=== PATIENT | female | born 1990 | race African-American/Black ===

== ENCOUNTER 2016-10-25 17:21 | Observation (INO) | payer SELFPAY ==
[~2016-10-25] VITALS: Ht 160 cm; Wt 170.0 kg
[~2016-10-25 17:21] MED LIST: CIPR250T2 PO; ZOFR4TAB3 PO
[2016-10-25 17:24] VITALS: BP 127/60; PULSE 95; RESP 14; O2SAT 100
--- NOTE | 2016-10-25 21:13 | PD ---
HPI Chief Complaint: Abdominal Pain Time Seen by Provider: 21:07 Travel History International Travel<30 days: No Contact w/Intl Traveler<30days: No Traveled to known affect area: No History of Present Illness HPI 26-year-old female with history of abnormal uterine bleeding, here for evaluation of vaginal bleeding times one month, lightheadedness/dizziness 3 days, left upper quadrant abdominal pain. Lightheadedness is worse with standing. Left upper quadrant abdominal pain described as sharp, moderate, intermittent, no modifying factors. She has some nausea but no vomiting. No diarrhea. 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 No other abdominal surgeries. No urinary symptoms. PFSH Past Medical History Anxiety: Yes Depression: No Cancer: No Cardiovascular Problems: No Diabetes: No Genitourinary: No Musculoskeletal: Yes (TWO FX ANKLES, NO SX) Neurologic: Yes (MIGRAINES NEW ONSET) Psychiatric: Yes Respiratory: No Immunizations Current: Yes ?: Not LMP: 10/09/16 Past Surgical History Other Surgery: Yes (excision of a sacral teratoma) Social History Alcohol Use: No Tobacco Use: No Substance Use: No Allergies-Medications (Allergen,Severity, Reaction): Coded Allergies: Decadron (Verified Allergy, Intermediate, Drowsiness, 09/21/15) Adhesives (Verified Allergy, Mild, 09/21/15) Reported Meds & Prescriptions Reported Meds & Active Scripts Active No Active Prescriptions or Reported Medications Review of Systems Except as stated in HPI: all other systems reviewed are Neg Physical Exam Narrative GENERAL: Well-developed, well-nourished, overweight, no acute distress. SKIN: Warm and dry. No rash. No pallor. HEAD: Atraumatic. Normocephalic. EYES: Pupils equal and round. No scleral icterus. No injection or drainage. ENT: Mucous membranes pink and moist. CARDIOVASCULAR: Regular rate and rhythm. RESPIRATORY: No accessory muscle use. Clear to auscultation. Breath sounds equal bilaterally. GASTROINTESTINAL: Abdomen soft, non-tender, nondistended. COMMERCIAL ATTORNEY: Exam performed in the presence of a female nurse. Normal external genitalia. Moderate amount of blood in vaginal vault coming from cervical os. No cervical lacerations. No masses. No vaginal lacerations. MUSCULOSKELETAL: No obvious deformities. No clubbing. No cyanosis. No edema. NEUROLOGICAL: Awake and alert. No obvious cranial nerve deficits. Motor grossly within normal limits. Normal speech. PSYCHIATRIC: Appropriate mood and affect; insight and judgment normal. Data Data Last Documented VS Vital Signs Date Time Temp Pulse Resp B/P Pulse Ox O2 Delivery O2 Flow Rate FiO2 10/25/16 21:33 16 10/25/16 21:32 99 Room Air 10/25/16 17:24 95 127/60 Orders Beta Hcg (Quant/Titer) (10/25/16 21:10) Complete Blood Count With Diff (10/25/16 21:10) Comprehensive Metabolic Panel (10/25/16 21:10) Lipase (10/25/16 21:10) Prothrombin Time / Inr (Pt) (10/25/16 21:10) Act Partial Throm Time (Ptt) (10/25/16 21:10) Urinalysis - C+S If Indicated (10/25/16 21:10) Iv Access Insert/Monitor (10/25/16 21:10) Ecg Monitoring (10/25/16 21:10) Oximetry (10/25/16 21:10) Ondansetron Inj (Zofran Inj) (10/25/16 21:15) Pantoprazole Inj (Protonix Inj) (10/25/16 21:15) Sodium Chloride 0.9% Flush (Ns Flush) (10/25/16 21:15) Al-Mag Hy-Si 40-40-4 Mg/Ml Liq (Mag-Al P (10/25/16 21:15) Lidocaine 2% Viscous (Xylocaine 2% Visco (10/25/16 21:15) Ed Urine Pregnancytest Poc (10/25/16 21:10) Urine Culture (10/25/16 21:30) Medroxyprogesterone Acetate (Provera) (10/25/16 22:45) Cbc No Diff, Includes Plts (10/25/16 23:30) Labs Laboratory Tests Test 10/25/16 10/25/16 21:30 23:30 White Blood Count 10.8 TH/MM3 9.8 TH/MM3 Red Blood Count 3.71 MIL/MM3 3.70 MIL/MM3 Hemoglobin 8.1 GM/DL 7.5 GM/DL Hematocrit 26.0 % 24.1 % Mean Corpuscular Volume 70.1 FL 65.2 FL Mean Corpuscular Hemoglobin 21.8 PG 20.4 PG Mean Corpuscular Hemoglobin 31.1 % 31.3 % Concent Red Cell Distribution Width 18.7 % 18.5 % Platelet Count 566 TH/MM3 501 TH/MM3 Mean Platelet Volume 7.6 FL 7.1 FL Neutrophils (%) (Auto) 68.4 % Lymphocytes (%) (Auto) 23.2 % Monocytes (%) (Auto) 5.7 % Eosinophils (%) (Auto) 2.1 % Basophils (%) (Auto) 0.6 % Neutrophils # (Auto) 7.4 TH/MM3 Lymphocytes # (Auto) 2.5 TH/MM3 Monocytes # (Auto) 0.6 TH/MM3 Eosinophils # (Auto) 0.2 TH/MM3 Basophils # (Auto) 0.1 TH/MM3 CBC Comment AUTO DIFF Differential Comment AUTO DIFF CONFIRMED Platelet Estimate HIGH Platelet Morphology Comment NORMAL Target Cells 1+ Ovalocytes 1+ Acanthocytes OCC Prothrombin Time 10.3 SEC Prothromb Time International 0.9 RATIO Ratio Activated Partial 26.3 SEC Thromboplast Time Urine Color YELLOW Urine Turbidity CLEAR Urine pH 6.5 Urine Specific [place] 1.018 Urine Protein TRACE mg/dL Urine Glucose (UA) NEG mg/dL Urine Ketones NEG mg/dL Urine Occult Blood LARGE Urine Nitrite NEG Urine Bilirubin NEG Urine Urobilinogen LESS THAN 2.0 MG/DL Urine Leukocyte Esterase SMALL Urine RBC /hpf Urine WBC 18 /hpf Urine Bacteria RARE /hpf Urine Mucus FEW /lpf Microscopic Urinalysis Comment CULTURE INDICATED Sodium Level 142 MEQ/L Potassium Level 4.3 MEQ/L Chloride Level 107 MEQ/L Carbon Dioxide Level 26.5 MEQ/L Anion Gap 9 MEQ/L Blood Urea Nitrogen 17 MG/DL Creatinine 0.78 MG/DL Estimat Glomerular Filtration 110 ML/MIN Rate Random Glucose 90 MG/DL Calcium Level 8.0 MG/DL Total Bilirubin 0.2 MG/DL Aspartate Amino Transf 23 U/L (AST/SGOT) Alanine Aminotransferase 15 U/L (ALT/SGPT) Alkaline Phosphatase 64 U/L Total Protein 7.1 GM/DL Albumin 3.3 GM/DL Lipase 80 U/L Human Chorionic Gonadotropin, LESS THAN 1 Quant MIU/ML MDM Medical Decision Making Medical Screen Exam Complete: Yes Emergency Medical Condition: Yes Medical Record Reviewed: Yes Differential Diagnosis Abnormal uterine bleeding, anemia, UTI, metabolic abnormality, gastritis, peptic ulcer disease, pancreatitis, Narrative Course Vital signs show heart rate 95, blood pressure 127/60, pulse ox 100% on room air. CBC shows WBC 10.8, hemoglobin 8.1, hematocrit 26, platelets 566. CMP is unremarkable. Lipase is 80. Beta hCG is negative. UA shows large occult blood, small leukocyte esterase, 18 wbc's, rare bacteria, few mucus. Culture indicated. Patient was given IV Zofran, IV Protonix, GI cocktail, and on reassessment is resting comfortably. COMMERCIAL ATTORNEY exam shows moderate amount of blood in vaginal vault coming from cervical os. No masses. No vaginal or cervical lacerations. Hemoglobin is 8.1 which is slightly lower than her baseline. She was given a dose of Provera. Repeat CBC will be performed 2 hours after the first, and if unchanged, the patient will be discharged home with COMMERCIAL ATTORNEY follow-up. Repeat CBC shows a hemoglobin of 7.5 with a hematocrit of 24. Patient remains hemodynamically stable. Because she had a slight drop in her hemoglobin, she will be admitted for overnight observation. Case discussed with [facility] hospitalist MERNA Mena. At this point transfusion will be held pending repeat CBC in the morning. Patient was given a dose of Provera for her vaginal bleeding. [facility] Diagnosis Primary Impression: Anemia Qualified Code: D64.9 - Anemia, unspecified type Additional Impression: Dysfunctional uterine bleeding Admitting Information Admitting Physician Requests: Observation Scripts No Active Prescriptions or Reported Meds Evangelista Brar MD Oct 25, 2016 21:13
[2016-10-25] MEDS ORDERED: ONDANSETRON HCL 4 MG/2 ML VIAL IVP ONE (21:15)
[2016-10-25] MEDS ORDERED: PANTOPRAZOLE SODIUM 40 MG VIAL IVP ONE (21:15)
[2016-10-25] MEDS ORDERED: ALUMINUM/MAGNESIUM/SIMETH 30 ML CUP PO ONE (21:15)
[2016-10-25] MEDS ORDERED: LIDOCAINE VISCOUS 2% SOLN 15 ML UDC PO ONE (21:15)
[2016-10-25] MEDS ORDERED: SODIUM CHLORIDE 0.9% FLUSH 5 ML FLUSH IVF PRN (21:15)
[2016-10-25 21:32] VITALS: RESP 16; O2SAT 99
[2016-10-25 21:40] VITALS: BP 136/62; PULSE 78; RESP 14; TEMP 98.4; O2SAT 99
[2016-10-25 21:51] LABS: AUTOMATED NEUTROPHIL # 7.4 TH/MM3 (1.8-7.7); BASOPHIL # 0.1 TH/MM3 (0-0.2); BASOPHIL % 0.6 % (0.0-2.0); EOSINOPHIL # 0.2 TH/MM3 (0-0.4); EOSINOPHIL % 2.1 % (0.0-4.0); LYMPH % 23.2 % (9.0-44.0); LYMPHOCYTE # 2.5 TH/MM3 (1.0-4.8); MEAN CELL VOLUME 70.1 FL (80.0-100.0); MEAN CORPUSCULAR HEMOGLOBIN 21.8 PG (27.0-34.0); MEAN CORPUSCULAR HGB CONC 31.1 % (32.0-36.0); MONO % 5.7 % (0.0-8.0); NEUT % 68.4 % (16.0-70.0); PLATELET COUNT 566 TH/MM3 (150-450); RED BLOOD COUNT 3.71 MIL/MM3 (4.00-5.30); RED CELL DISTRIBUTION WIDTH 18.7 % (11.6-17.2); WHITE BLOOD COUNT 10.8 TH/MM3 (4.0-11.0)
[2016-10-25 21:52] LABS: HEMO FLAGS AUTO DIFF
[2016-10-25 22:00] LABS: APTT (PATIENT) 26.3 SEC (24.3-30.1); INTERNATIONAL NORMALIZED RATIO 0.9 RATIO; PROTHROMBIN TIME - PATIENT 10.3 SEC (9.8-11.6)
[2016-10-25 22:05] LABS: BACTERIA, URINE RARE /hpf; BLOOD, URINE LARGE (NEG); GLUCOSE,URINE NEG (NEG); KETONE, URINE NEG (NEG); MUCUS URINE FEW /lpf (OCC); NITRITE,URINE NEG (NEG); PH, URINE 6.5 (5.0-8.5); URINE COLOR YELLOW (YELLW/STRAW)
[2016-10-25 22:07] LABS: COMMENT (UR) CULTURE INDICATED; CULTURE IF INDICATED CULTURE INDICATED
[2016-10-25 22:12] LABS: ALT (GPT) 15 U/L (10-53); ANION GAP 9 MEQ/L (5-15); AST (GOT) 23 U/L (15-37); BICARBONATE 26.5 MEQ/L (21.0-32.0); BLOOD UREA NITROGEN 17 MG/DL (7-18); CHLORIDE 107 MEQ/L (98-107); GLOMERULAR FILTRATION RATE 110 ML/MIN (>89); POTASSIUM 4.3 MEQ/L (3.5-5.1); SODIUM (NA) 142 MEQ/L (136-145)
[2016-10-25 22:16] LABS: ALKALINE PHOSPHATASE 64 U/L (45-117); BETA HCG QUANT LESS THAN 1 MIU/ML (0-5); TOTAL BILIRUBIN ADULT 0.2 MG/DL (0.2-1.0)
[2016-10-25 22:22] LABS: OVALOCYTES 1+ (NORMAL); TARGET CELLS 1+ (NORMAL)
[2016-10-25 22:23] LABS: ACANTHOCYTES OCC (NORMAL); PLATELET ESTIMATE SMEAR HIGH (NORMAL); PLATELET MORPHOLOGY NORMAL (NORMAL); SCAN/DIFF AUTO DIFF CONFIRMED
[2016-10-25] MEDS ORDERED: medroxyPROGESTERone ACETATE 10 MG TAB PO ONE (22:45)
[2016-10-25 23:39] LABS: HEMATOCRIT 24.1 % (35.0-46.0); MEAN CELL VOLUME 65.2 FL (80.0-100.0); MEAN CORPUSCULAR HEMOGLOBIN 20.4 PG (27.0-34.0); MEAN CORPUSCULAR HGB CONC 31.3 % (32.0-36.0); PLATELET COUNT 501 TH/MM3 (150-450); RED CELL DISTRIBUTION WIDTH 18.5 % (11.6-17.2); WHITE BLOOD COUNT 9.8 TH/MM3 (4.0-11.0)
[2016-10-25 23:50] LABS: REVIEW FLAG FINAL
[2016-10-26] VITALS (10 sets, daily range): BP systolic 107–136; BP diastolic 53–74; PULSE 74–87; RESP 16–22; TEMP 97.3–98.8; O2SAT 95–99
[2016-10-26] MEDS ORDERED: NALOXONE HCL 0.4 MG/ML AMP IV PRN (01:00)
[2016-10-26] MEDS ORDERED: ONDANSETRON HCL 4 MG/2 ML VIAL IVP PRN (01:00)
[2016-10-26] MEDS ORDERED: ACETAMINOPHEN 325 MG TAB PO PRN (01:00)
[2016-10-26] MEDS ORDERED: SODIUM CHLORIDE 0.9% FLUSH 5 ML FLUSH FLUSH PRN (01:00)
[2016-10-26 05:48] LABS: RETIC % 1.3 % (0.4-3.0)
[2016-10-26 05:54] LABS: REVIEW FLAG FINAL
[2016-10-26 06:42] LABS: FERRITIN 6 NG/ML (8-252); TRANSFERRIN IRON PROFILE 217 MG/DL (200-360)
[2016-10-26 09:15] LABS: HEMATOCRIT 23.9 % (35.0-46.0)
[2016-10-26 09:16] LABS: REVIEW FLAG FINAL
[2016-10-26] MEDS: SODIUM CHLORIDE 0.9% FLUSH 5 ML FLUSH FLUSH SCH ×2 (09:19→21:00)
--- NOTE | 2016-10-26 09:25 | MH ---
cc: PATTY SHAIKH MD DATE OF ADMISSION: 10/26/2016 DATE OF 1990 CHIEF COMPLAINT Abdominal pain, abnormal bleeding cycle, lightheadedness. TRAVEL IN THE LAST 30 DAYS None HISTORY OF PRESENT ILLNESS This is a pleasant obese 26-year-old black female who is very active with working, college and her sabianism. She has been struggling with her menstrual cycles for at least six months and states that she has two cycles a month. Her last cycle was on 10/09 and she has noted an increase in her uterine bleeding with abdominal cramps. For the last three days when working or being of doing her regular ADLs, she noted some lightheadedness. She has had some left upper quadrant abdominal pain which she describes as a sharp pain, intermittent rates it a 7 on a scale 7-10. She has complained of some no nausea but no vomiting, no diarrhea, no constipation. The patient denies any dysuria or any problems voiding. She also notes a cough, but no fever or congestion for the past two weeks. The patient's mother is at her side. She had an appointment set up with ADVERTISING LAYOUT WORKER Dr. Welsh, but has not seen her in the office as of yet. Initially when the patient came in, hemoglobin was 8.1. Last hemoglobin reviewed was at 2330 last night and hemoglobin was 7.5. PAST MEDICAL HISTORY Includes: 1. Some anxiety 2. Ankle fractures 3. New onset migraines 4. Obesity PAST SURGICAL HISTORY Excision of a sacral teratoma at . ALLERGIES DECADRON, ADHESIVES AND WE WILL ADD DILAUDID WHICH CAUSES RASH AND ITCHING. MEDICATIONS No active medications. SOCIAL HISTORY The patient is single. Currently still lives at home with her parents. No alcohol. No tobacco. No illicit drug use. She does work approximately six days a week, she goes to college and she is very active in her sabianism. REVIEW OF SYSTEMS Positive for abdominal pain, moderate, sharp, cramping left upper quadrant, lightheadedness and dizziness x3 days, nausea. Other systems negative or unremarkable. PHYSICAL EXAM VITAL SIGNS: Temperature is 97.3, pulse 80, respirations 18, blood pressure 112/54, has been as high as 136/62. O2 sat 97 on room air. SKIN: [place] mucous membranes, warm and dry. No rashes. HEENT: Atraumatic, normocephalic. AGNIESZKA three. Mucous membranes are pale and dry. No scleral icterus. NECK: Thick, supple. CARDIOVASCULAR: S1-S2 regular rate and rhythm. No audible murmurs, rubs and gallops. Heart sounds are distant. RESPIRATORY: Essentially clear anteriorly and posteriorly with no wheezes, rales or rhonchi. Nonproductive cough. ABDOMEN: Obese, round, soft, nontender, nondistended. Active bowel sounds in all four quads. ADVERTISING LAYOUT WORKER EXAM: Performed on admission to the emergency room. MUSCULOSKELETAL: Moves her extremities with purpose. No clubbing, no cyanosis. No edema. NEUROLOGIC: She is alert, oriented, a good historian. Equal hand repair weaver. Speech is clear and normal. PSYCHIATRIC: Appropriate mood and affect. Insight and judgment is normal. DIAGNOSTIC DATA WBC count 9.8, RBC 3.7, hemoglobin 7.5, hematocrit 24.1, platelet count is 501. Noted last night, high platelet estimate, normal morphology, target cells 1+, ovalocytes 1+, occasional spurs, retic count 1.3, absolute retic 45.3, PT/INR 0.9. Chemistry sodium 142, potassium 4.3, chloride 107, carbon dioxide 26.5, amnion gap 9, BUN 17, creatinine 0.78, GFR 110, calcium is 8, iron is 14, TIBC 304, saturation percentage 4.6, ferritin 6, total bilirubin 0.2, albumin 3.3. Vitamin B12 197. HCG quantitative less than one. Urine is yellow clear, pH 6.5, specific gravity 1.018, protein is trace, large amount of occult blood, negative for glucose ketones, nitrites bilirubin, small amount of leukocyte esterase. Urine culture is indicated. IMAGING STUDIES None ASSESSMENT 1. Anemia, dysfunctional uterine bleeding 2. Obesity 3. Possible UTI 4. A history of new onset of migraines. PLAN 1. Our plan is to admit, place in observation for now. 2. Consult Gynecology for their expert opinion. 3. We are going to recheck her hemoglobin and hematocrit to make sure that we do not continue to drop. If she is less than 7, we will consider transfusion. The patient does have symptomatic dizziness but no syncope. 4. Reconcile her reviewed medications, none to reconcile. 5. DVT prophylaxis with SCD's 7. ECG monitoring 8. IV access 9. Vital signs will be q4 and/or as needed. We appreciate the expert opinion of gynecology and we will follow her needs. Dictated by IAN Isidro MD NOHEMI Raymundo/ROBINSON /8:06 AM /9:21 AM pt is seen & examined d/w PT & her mother at bedside d/w Alyx see Orders see H&P Invertebrate Paleontologist consult appreciated IV iron PRBC tx control pill started will f/u Patty Shaikh MD Oct 26, 2016 14:43 MTDD
--- NOTE | 2016-10-26 10:49 | PD.CONS ---
HPI Chief Complaint Heavy menstrual bleeding Date Seen: Oct 26, 2016 Time Seen: 10:00 Travel History International Travel<30 Days: No Contact w/Intl Traveler<30Days: No Known Affected Area: No History of Present Illness HPI 26 year old female presented to the ED due to menstrual bleeding that has been occurring since October 09, dizziness, and fatigue. FRONT END SOFTWARE ENGINEER has been consulted due to uterine bleeding. She states she has had menstrual bleeding every day since the and has noticed an increase in blood loss over the past week. She reports age of onset of menstruation was at 13 years of age, her menstrual periods have been irregular and heavy since onset. She has never taken OCPs or any other form of control for her irregular menstrual periods. She does report taking Metformin prescribed by her PCP about 2-3 years ago which she states did not decrease blood loss. She does take aleve as needed for menstrual cramps and she states this also does not decrease menstrual blood loss. She reports feeling dizzy for the past few days, worse when standing up too quickly and when walking. Endorses fatigue, moreso than baseline. She reports left upper quadrant abdominal pain for the past day or two, at about a 5/10 now, nonradiating. Denies N/V, diarrhea, constipation. She did have an appointment to see Dr. Welsh but has not yet seen her in office. : 0 History Past Medical History Narrative Medical Obesity Mild anxiety New onset migraines Obstetric History Obstetric History G0 Past Surgical History Narrative Surgical Excision of a sacral teratoma at Tonsillectomy at 5 years of age Family History Narrative Family History Maternal grandmother with pernicious anemia Mother with uterine fibroids Father: DM, at age 52 No known family history of coagulopathies Social History Narrative Social History Not sexually active Denies tobacco, etoh, illicit drug use Lives at home with mother Alcohol Use: No Tobacco Use: No Substance Abuse: No Allergies-Medications (Allergen,Severity, Reaction): Coded Allergies: Decadron (Verified Allergy, Intermediate, Drowsiness, 09/21/15) Adhesives (Verified Allergy, Mild, 09/21/15) Home Meds Active Scripts Norgestimate-Ethinyl Estradiol (Sprintec 28)0.25-35 mg-Mcg Tab1 Tab PO DAILY # 1 PACK Ref 0 Prov:Garfield Basilio MD R2 10/26/16 Review of Systems General / Constitutional: No: Fever, Chills Cardiovascular: No: Chest Pain or Discomfort, Palpitations, Syncope Respiratory: No: Cough, Short of Breath Gastrointestinal: Abdominal Pain, No: Nausea, Vomiting, Diarrhea, Constipation Genitourinary: Menorrhagia, Vaginal Bleeding, No: Dysuria, Hematuria Skin: No Rash Neurologic: Dizziness, No: Syncope Physical Exam Vital Signs Date Time Temp Pulse Resp B/P Pulse Ox O2 Delivery O2 Flow Rate FiO2 10/26/16 07:58 97.3 80 18 112/54 97 10/26/16 04:39 97.8 74 18 115/61 97 10/26/16 02:25 98.8 84 18 112/55 98 10/26/16 01:49 98.2 71 16 130/68 99 10/25/16 21:40 98.4 78 14 136/62 99 Room Air 10/25/16 21:33 16 10/25/16 21:32 16 99 Room Air 10/25/16 17:24 95 14 127/60 100 Room Air Narrative GENERAL: NAD, sitting comfortably in bed NEURO: AOx3. Normal speech. formula room worker grossly intact. SKIN: Warm and dry. No rashes or erythema. HEAD: Normocephalic. Atraumatic. EYES: PERRL. EOMI. No scleral icterus. No injection or drainage. ENT: No nasal drainage. Moist mucous membranes. No oral ulcers or lesions. NECK: Supple, trachea midline. CARDIOVASCULAR: Regular rate and rhythm without murmurs, rubs, or gallops. Peripheral pulses 2+. Capillary refill < 2 seconds. RESPIRATORY: Breath sounds clear to auscultation and equal bilaterally, without wheezes, rales, or rhonchi. No accessory muscle use. GASTROINTESTINAL: Abdomen soft, mild tenderness to palpation of left upper quadrant, protuberant. Unable to appreciate for organomegaly or masses. No rebound tenderness. No guarding. MUSCULOSKELETAL: No edema, cyanosis, or clubbing. Normal range of motion. Data Data Vital Signs Reviewed: Yes Orders Beta Hcg (Quant/Titer) (10/25/16 21:10) Complete Blood Count With Diff (10/25/16 21:10) Comprehensive Metabolic Panel (10/25/16 21:10) Lipase (10/25/16 21:10) Prothrombin Time / Inr (Pt) (10/25/16 21:10) Act Partial Throm Time (Ptt) (10/25/16 21:10) Urinalysis - C+S If Indicated (10/25/16 21:10) Iv Access Insert/Monitor (10/25/16 21:10) Ecg Monitoring (10/25/16 21:10) Oximetry (10/25/16 21:10) Ondansetron Inj (Zofran Inj) (10/25/16 21:15) Pantoprazole Inj (Protonix Inj) (10/25/16 21:15) Sodium Chloride 0.9% Flush (Ns Flush) (10/25/16 21:15) Al-Mag Hy-Si 40-40-4 Mg/Ml Liq (Mag-Al P (10/25/16 21:15) Lidocaine 2% Viscous (Xylocaine 2% Visco (10/25/16 21:15) Ed Urine Pregnancytest Poc (10/25/16 21:10) Urine Culture (10/25/16 21:30) Medroxyprogesterone Acetate (Provera) (10/25/16 22:45) Cbc No Diff, Includes Plts (10/25/16 23:30) Admit Order (Ed Use Only) (10/26/16 00:16) Place In Observation (10/26/16 ) Vital Signs (Adult) Q4H (10/26/16 00:54) Activity Oob With Assistance (10/26/16 00:54) Diet Regular Basic (10/26/16 Breakfast) Sodium Chloride 0.9% Flush (Ns Flush) (10/26/16 01:00) Sodium Chloride 0.9% Flush (Ns Flush) (10/26/16 09:00) Acetaminophen (Tylenol) (10/26/16 01:00) Ondansetron Inj (Zofran Inj) (10/26/16 01:00) Complete Blood Count With Diff (10/27/16 06:00) Scd Bilateral/Knee High LAUREN.BID (10/26/16 00:54) Naloxone Inj (Narcan Inj) (10/26/16 01:00) Vitamin B12 (10/26/16 06:00) Ferritin (10/26/16 06:00) Iron/Tibc Profile (10/26/16 06:00) Retic Count (10/26/16 06:00) Consult Gynecology (10/26/16 ) Hgb & Hct (10/26/16 08:02) (Hub Use Only)Inp Phy Cons/Ref (10/26/16 ) Vascular Access Team Consult PRN (10/26/16 09:26) Vascular Poc Ultrasound (10/26/16 ) Labs Laboratory Tests Test 10/25/16 10/25/16 10/26/16 21:30 23:30 05:14 White Blood Count 10.8 9.8 Red Blood Count 3.71 3.70 Hemoglobin 8.1 7.5 7.2 Hematocrit 26.0 24.1 23.9 Mean Corpuscular Volume 70.1 65.2 Mean Corpuscular Hemoglobin 21.8 20.4 Mean Corpuscular Hemoglobin 31.1 31.3 Concent Red Cell Distribution Width 18.7 18.5 Platelet Count 566 501 Mean Platelet Volume 7.6 7.1 Neutrophils (%) (Auto) 68.4 Lymphocytes (%) (Auto) 23.2 Monocytes (%) (Auto) 5.7 Eosinophils (%) (Auto) 2.1 Basophils (%) (Auto) 0.6 Neutrophils # (Auto) 7.4 Lymphocytes # (Auto) 2.5 Monocytes # (Auto) 0.6 Eosinophils # (Auto) 0.2 Basophils # (Auto) 0.1 CBC Comment AUTO DIFF Differential Comment AUTO DIFF CONFIRMED Platelet Estimate HIGH Platelet Morphology Comment NORMAL Target Cells 1+ Ovalocytes 1+ Acanthocytes OCC Prothrombin Time 10.3 Prothromb Time International 0.9 Ratio Activated Partial 26.3 Thromboplast Time Urine Color YELLOW Urine Turbidity CLEAR Urine pH 6.5 Urine Specific [place] 1.018 Urine Protein TRACE Urine Glucose (UA) NEG Urine Ketones NEG Urine Occult Blood LARGE Urine Nitrite NEG Urine Bilirubin NEG Urine Urobilinogen LESS THAN 2.0 Urine Leukocyte Esterase SMALL Urine RBC Urine WBC 18 Urine Bacteria RARE Urine Mucus FEW Microscopic Urinalysis Comment CULTURE INDICATED Sodium Level 142 Potassium Level 4.3 Chloride Level 107 Carbon Dioxide Level 26.5 Anion Gap 9 Blood Urea Nitrogen 17 Creatinine 0.78 Estimat Glomerular Filtration 110 Rate Random Glucose 90 Calcium Level 8.0 Total Bilirubin 0.2 Aspartate Amino Transf 23 (AST/SGOT) Alanine Aminotransferase 15 (ALT/SGPT) Alkaline Phosphatase 64 Total Protein 7.1 Albumin 3.3 Lipase 80 Human Chorionic Gonadotropin, LESS THAN 1 Quant Reticulocyte Count 1.3 Absolute Reticulocyte Count 45.3 Iron Level 14 Total Iron Binding Capacity 304 Percent Iron Saturation 4.6 Ferritin 6 Vitamin B12 Level 197 Date/Time Procedure Status Source Growth 10/25/16 21:30 Urine Culture Worksheet Urine Random Urine Pending MDM Medical Record Reviewed: Yes Plan 26 year old female presented to the ED due to menstrual bleeding that has been occurring since October 09, dizziness, and fatigue. FRONT END SOFTWARE ENGINEER consulted due to uterine bleeding. 1. Dysfunctional uterine bleeding - More common etiologies in this age group includes anovulation, coagulopathies such as von willebrand disease, platelet disorders, PCOS, thyroid dysfunction - The patient is morbidly obese causing high estrogen and likely causing hormonal imbalances, also increasing her risk for endometrial hyperplasia and cancer - Patient will need close follow up with an home worker for continued treatment - Will start the patient on Sprintec, provided pharmacy with prescription which will be filled and started for the patient while in hospital - Von willebrand evaluation - Obtain TSH 2. Anemia - Hgb 8.1 on admission, now 7.2 - Iron panel c/w iron deficiency - Management per primary team dw Dr. Julio sdw Dr. Basilio Admitting diagnosis: anemia, dysfunctional uterine bleeding Scripts Norgestimate-Ethinyl Estradiol (Sprintec 28)0.25-35 mg-Mcg Tab1 Tab PO DAILY # 1 PACK Ref 0 Prov:Garfield Basilio MD R2 10/26/16 Ryan Zuniga MD R1 Oct 26, 2016 10:49
[2016-10-26] MEDS ORDERED: SPRI28TA PO (11:08)
--- NOTE | 2016-10-26 14:43 | HHI.PR ---
Objective Objective Results - Vital Signs Date Time Temp Pulse Resp B/P Pulse Ox O2 Delivery O2 Flow Rate FiO2 10/26/16 11:33 98.3 80 18 114/59 95 10/26/16 07:58 97.3 80 18 112/54 97 10/26/16 04:39 97.8 74 18 115/61 97 10/26/16 02:25 98.8 84 18 112/55 98 10/26/16 01:49 98.2 71 16 130/68 99 10/25/16 21:40 98.4 78 14 136/62 99 Room Air 10/25/16 21:33 16 10/25/16 21:32 16 99 Room Air 10/25/16 17:24 95 14 127/60 100 Room Air I/O 10/25/16 10/25/16 10/25/16 10/26/16 10/26/16 10/26/16 07:00 15:00 23:00 07:00 15:00 23:00 Intake Total 300 ml Balance 300 ml Intake Oral 300 ml # Voids 1 # Sanitary Pads 2 Pads Result Diagram: 10/26/1614 10/25/162129 Other Results Laboratory Tests Test 10/25/16 10/25/16 10/26/16 10/26/16 21:30 23:30 05:14 13:20 White Blood Count 10.8 9.8 Red Blood Count 3.71 3.70 Hemoglobin 8.1 7.5 7.2 Hematocrit 26.0 24.1 23.9 Mean Corpuscular Volume 70.1 65.2 Mean Corpuscular Hemoglobin 21.8 20.4 Mean Corpuscular Hemoglobin 31.1 31.3 Concent Red Cell Distribution Width 18.7 18.5 Platelet Count 566 501 Mean Platelet Volume 7.6 7.1 Neutrophils (%) (Auto) 68.4 Lymphocytes (%) (Auto) 23.2 Monocytes (%) (Auto) 5.7 Eosinophils (%) (Auto) 2.1 Basophils (%) (Auto) 0.6 Neutrophils # (Auto) 7.4 Lymphocytes # (Auto) 2.5 Monocytes # (Auto) 0.6 Eosinophils # (Auto) 0.2 Basophils # (Auto) 0.1 CBC Comment AUTO DIFF Differential Comment AUTO DIFF CONFIRMED Platelet Estimate HIGH Platelet Morphology Comment NORMAL Target Cells 1+ Ovalocytes 1+ Acanthocytes OCC Prothrombin Time 10.3 Prothromb Time International 0.9 Ratio Activated Partial 26.3 Thromboplast Time Urine Color YELLOW Urine Turbidity CLEAR Urine pH 6.5 Urine Specific [place] 1.018 Urine Protein TRACE Urine Glucose (UA) NEG Urine Ketones NEG Urine Occult Blood LARGE Urine Nitrite NEG Urine Bilirubin NEG Urine Urobilinogen LESS THAN 2.0 Urine Leukocyte Esterase SMALL Urine RBC Urine WBC 18 Urine Bacteria RARE Urine Mucus FEW Microscopic Urinalysis Comment CULTURE INDICATED Sodium Level 142 Potassium Level 4.3 Chloride Level 107 Carbon Dioxide Level 26.5 Anion Gap 9 Blood Urea Nitrogen 17 Creatinine 0.78 Estimat Glomerular Filtration 110 Rate Random Glucose 90 Calcium Level 8.0 Total Bilirubin 0.2 Aspartate Amino Transf 23 (AST/SGOT) Alanine Aminotransferase 15 (ALT/SGPT) Alkaline Phosphatase 64 Total Protein 7.1 Albumin 3.3 Lipase 80 Human Chorionic Gonadotropin, LESS THAN 1 Quant Reticulocyte Count 1.3 Absolute Reticulocyte Count 45.3 Iron Level 14 Total Iron Binding Capacity 304 Percent Iron Saturation 4.6 Ferritin 6 Vitamin B12 Level 197 Thyroid Stimulating Hormone 3.220 3rd Gen Date/Time Procedure Status Source Growth 10/25/16 21:30 Urine Culture Worksheet Urine Random Urine Pending Physical Exam Physical Exam pt is seen & examined d/w PT & her mother at bedside d/w Alyx see Orders see H&P Supervisory Geographer consult appreciated IV iron PRBC tx control pill started will f/u iSmon Shaikh MD Oct 26, 2016 14:43
[2016-10-26] MEDS ORDERED: SODIUM CHLOR 0.9% 250 ML INJ 250 ML IV ONE (14:45)
[2016-10-26] MEDS ORDERED: IRON SUCROSE INJ 100 MG in SODIUM CHLORIDE 0.9% INJ 100 ML IV ONE (15:00)
[2016-10-27 06:24] VITALS: BP 116/56; PULSE 87; RESP 18; TEMP 97.8; O2SAT 97
[2016-10-27 06:55] LABS: AUTOMATED NEUTROPHIL # 5.6 TH/MM3 (1.8-7.7); BASOPHIL % 0.5 % (0.0-2.0); EOSINOPHIL # 0.3 TH/MM3 (0-0.4); EOSINOPHIL % 3.4 % (0.0-4.0); HEMATOCRIT 27.9 % (35.0-46.0); LYMPH % 26.2 % (9.0-44.0); LYMPHOCYTE # 2.3 TH/MM3 (1.0-4.8); MEAN CELL VOLUME 70.8 FL (80.0-100.0); MEAN CORPUSCULAR HEMOGLOBIN 21.6 PG (27.0-34.0); MEAN CORPUSCULAR HGB CONC 30.5 % (32.0-36.0); MONO % 5.5 % (0.0-8.0); NEUT % 64.4 % (16.0-70.0); PLATELET COUNT 502 TH/MM3 (150-450); RED BLOOD COUNT 3.94 MIL/MM3 (4.00-5.30); WHITE BLOOD COUNT 8.7 TH/MM3 (4.0-11.0)
[2016-10-27 07:06] LABS: HEMO FLAGS AUTO DIFF
[2016-10-27 07:46] VITALS: BP 101/56; PULSE 97; RESP 18; TEMP 95.8; O2SAT 98
[2016-10-27] MEDS: SODIUM CHLORIDE 0.9% FLUSH 5 ML FLUSH FLUSH SCH (08:04)
[2016-10-27 08:22] LABS: CORRECTED NUCLEATED RBC 1 /100 WBC (0-0); EOSINOPHILS 6 % (0-4); NEUTROPHIL # MANUAL DIFF 5.5 TH/MM3 (1.8-7.7); POLYS (SEG NEUTROPHILS) 63 % (16-70); WBC DIFF SAMPLE 100
[2016-10-27 08:24] LABS: OVALOCYTES 1+ (NORMAL); PLATELET ESTIMATE SMEAR HIGH (NORMAL); PLATELET MORPHOLOGY NORMAL (NORMAL); SCAN/DIFF FINAL DIFF MANUAL; TEARDROP RBCS 1+ (NORMAL)
--- NOTE | 2016-10-27 09:39 | HHI.PR ---
Subjective Remarks Alert, playing on her telephone No facial grimace Appetite good Patient feeling better this a.m. Afebrile Objective Objective Results - Vital Signs Date Time Temp Pulse Resp B/P Pulse Ox O2 Delivery O2 Flow Rate FiO2 10/27/16 07:46 95.8 97 18 101/56 98 10/27/16 06:24 97.8 87 18 116/56 97 10/26/16 19:29 97.6 87 22 107/53 99 10/26/16 18:31 98.7 81 16 120/56 97 10/26/16 18:24 98.6 82 16 120/60 99 10/26/16 18:11 98.5 81 16 136/74 98 10/26/16 16:20 97.5 85 19 121/65 98 10/26/16 11:33 98.3 80 18 114/59 95 I/O 10/26/16 10/26/16 10/26/16 10/27/16 10/27/16 10/27/16 07:00 15:00 23:00 07:00 15:00 23:00 Intake Total 300 ml 600 ml Balance 300 ml 600 ml Intake Oral 300 ml 500 ml IV Total 100 ml # Voids 1 # Sanitary Pads 2 Pads Result Diagram: 10/27/16 0620 10/25/160 ROS General: Other (10 point ROS completed less cramping uterine bleeding improved , other systems negative or unremarkable) GI: Abdominal Pain (uterine bleeding cramping much improved) Physical Exam Physical Exam PHYSICAL EXAMINATION GENERAL: This is a obese well-developed, well-nourished female who appears to be in no acute distress. She is alert and awake, HEAD: Normocephalic without any lesion or mass noted. Facial features appear symmetric. OROPHARYNGEAL: Oropharynx without erythema or edema. NECK: Supple. No nuchal rigidity or lymphadenopathy. Trachea midline without deviation. CARDIAC: Regular rhythm, regular rate, S1 and S2 are heard. Murmur none LUNGS: Clear to auscultation bilaterally. No wheeze, ABDOMEN: Soft, nontender, obese Bowel sounds are heard in all four quadrants. No rebound. No guarding. EXTREMITIES: no edema. Pulses equal bilateral. NEUROLOGICAL: Patient mood and affect appropriate. No focal deficit SKIN:Warm and moist Objective Remarks I'm feeling better today A/P Assessment and Plan 1. Anemia, dysfunctional uterine bleeding 2. Obesity 3. Possible UTI 4. A history of new onset of migraines. PLAN 1. Vital signs monitored as well as labs. 2. Consult Gynecology for their expert opinion. Appreciate, patient will be placed on control pills, mom is filling prescription and patient can start today 3. Hemoglobin still shows anemia but much improved up to 8.5. Uterine Bleeding has improved with less amount according to patient 4. Discharge planning in process probable today after and more sees. Also we'll have [employer] recheck before discharge. 5. DVT prophylaxis with SCD's 7. ECG monitoring 8. IV access 9. Vital signs will be q4 and/or as needed. Discussed With: Nurse, Family (patient), Other (Dr. Shaikh, patient seen on his behalf) Alyx Weller Oct 27, 2016 09:39
[2016-10-27] MEDS ORDERED: FERR325T PO (12:11)
--- NOTE | 2016-10-27 18:48 | HHI.DS ---
Discharge Summary Admission Date Oct 26, 2016 at 00:18 Discharge Date: Oct 27, 2016 Admitting Diagnosis anemia, dysfunctional uterine bleeding Brief History This was a pleasant obese 26-year-old black female who was very active with working, college and her mandaeism. She had been struggling with her menstrual cycles for at least six months and states that she had two cycles a month. Her last cycle was on 10/09 and she has noted an increase in her uterine bleeding with abdominal cramps. For the last three days when working or being of doing her regular ADLs, she noted some lightheadedness. She had some left upper quadrant abdominal pain which she described as a sharp pain, intermittent rates it a 7 on a scale 7-10. She had complained of some no nausea but no vomiting, no diarrhea, no constipation. The patient denied any dysuria or any problems voiding. She also noted a cough, but no fever or congestion for the past two weeks. The patient's mother is at her side. She had an appointment set up with TACK CUTTER Dr. Welsh, but had not seen her in the office as of yet. CBC/BMP: 10/27/16 0620 10/25/16 2130 Significant Findings Laboratory Tests Test 10/25/16 10/25/16 10/26/16 10/27/16 21:30 23:30 05:14 06:20 Red Blood Count 3.71 MIL/MM3 3.70 MIL/MM3 3.94 MIL/MM3 (4.00-5.30) (4.00-5.30) (4.00-5.30) Hemoglobin 8.1 GM/DL 7.5 GM/DL 7.2 GM/DL 8.5 GM/DL (11.6-15.3) (11.6-15.3) (11.6-15.3) (11.6-15.3) Hematocrit 26.0 % 24.1 % 23.9 % 27.9 % (35.0-46.0) (35.0-46.0) (35.0-46.0) (35.0-46.0) Mean Corpuscular Volume 70.1 FL 65.2 FL 70.8 FL (80.0-100.0) (80.0-100.0) (80.0-100.0) Mean Corpuscular Hemoglobin 21.8 PG 20.4 PG 21.6 PG (27.0-34.0) (27.0-34.0) (27.0-34.0) Mean Corpuscular Hemoglobin 31.1 % 31.3 % 30.5 % Concent (32.0-36.0) (32.0-36.0) (32.0-36.0) Red Cell Distribution Width 18.7 % 18.5 % 20.0 % (11.6-17.2) (11.6-17.2) (11.6-17.2) Platelet Count 566 TH/MM3 501 TH/MM3 502 TH/MM3 (150-450) (150-450) (150-450) Platelet Estimate HIGH (NORMAL) HIGH (NORMAL) Target Cells 1+ (NORMAL) Ovalocytes 1+ (NORMAL) 1+ (NORMAL) Acanthocytes OCC (NORMAL) Urine Occult Blood LARGE (NEG) Urine Leukocyte Esterase SMALL (NEG) Urine WBC 18 /hpf (0-5) Urine Bacteria RARE /hpf (NONE) Urine Mucus FEW /lpf (OCC) Calcium Level 8.0 MG/DL (8.5-10.1) Albumin 3.3 GM/DL (3.4-5.0) Iron Level 14 MCG/DL (50-170) Percent Iron Saturation 4.6 % (20-50) Ferritin 6 NG/ML (8-252) Eosinophils % 6 % (0-4) Nucleated Red Blood Cells 1 /100 WBC (0-0) Tear Drop Cells 1+ (NORMAL) PE at Discharge PHYSICAL EXAMINATION GENERAL: This was a obese well-developed, well-nourished female who appeared to be in no acute distress. She was alert and awake, HEAD: Normocephalic without any lesion or mass noted. Facial features appear symmetric. OROPHARYNGEAL: Oropharynx without erythema or edema. NECK: Supple. No nuchal rigidity or lymphadenopathy. Trachea midline without deviation. CARDIAC: Regular rhythm, regular rate, S1 and S2 are heard. Murmur none LUNGS: Clear to auscultation bilaterally. No wheeze, ABDOMEN: Soft, nontender, obese Bowel sounds are heard in all four quadrants. No rebound. No guarding. EXTREMITIES: no edema. Pulses equal bilateral. NEUROLOGICAL: Patient mood and affect appropriate. No focal deficit SKIN:Warm and moist Objective Remarks I'm feeling better today Hospital Course Initially in the ER, when the patient came in, hemoglobin was 8.1. Last hemoglobin reviewed was at 2330 last night and hemoglobin was 7.5. These are the diagnosis used to treat this patient. 1. Anemia, dysfunctional uterine bleeding 2. Obesity 3. Possible UTI 4. A history of new onset of migraines. PLAN Used 1. Vital signs monitored as well as labs. Initial concern was for her hgb, and bleeding noted. Monitored several H&H ,thought she may require transfusion , but she stablized. 2. Consult Gynecology for their expert opinion. Appreciate, patient will be placed on control pills, mom is filling prescription and patient can start today 3. Hemoglobin still shows anemia but much improved up to 8.5. Uterine Bleeding has improved with less amount according to patient 4. Discharge planning in process probable today after and more sees. Also we'll have [facility] [facility] recheck before discharge. 5. DVT prophylaxis with SCD's 7. ECG monitoring 8. IV access 9. Vital signs will be q4 and/or as needed. Discussed With: Nurse, Family (patient), Other (Dr. Shaikh, patient seen on his behalf) Dr. Shaikh saw patient pt is seen & Examined, stable for discharge d/w PT & her mom at bedside d/w Alyx daley to d/c home f/u PCP & last scourer f/u pending labs results [ [place] test ] at pcp's office take po iron regularly Pt Condition on Discharge: Stable Discharge Disposition: Discharge Home Discharge Instructions DIET: Follow Instructions for: As Tolerated, No Restrictions Fluid Restrictions: none Activities you can perform: Regular-No Restrictions Alyx Weller Oct 27, 2016 18:48
[2016-10-28 19:52] LABS: COAG FACTOR VIII 160 (50-180)
[2016-10-30 23:52] LABS: VWF AG 119 % (50-217)
== END 2016-10-27 14:56 | disposition home or self-care (01) ==
LOC: NEPA 17:21 → NEDA 10-26 00:18 → NEPHCDU 10-26 02:09
PROVIDERS: ADMIT Specialist; ATTEND Specialist
DX: N93.8 Other specified abnormal uterine and vaginal bleeding (principal); D64.9 Anemia, unspecified; F41.9 Anxiety disorder, unspecified; G43.909 Migraine, unspecified, not intractable, without status migrainosus; E66.9 Obesity, unspecified; Z68.44 Body mass index [BMI] 60.0-69.9, adult
CPT/HCPCS: 36430; 80053; 81001; 82607; 82728; 83540; 83550; 83690; 84443; 84702; 84703; 85007; 85014; 85018; 85025; 85027; 85044; 85240; 85245; 85246; 85247; 85610; 85730; 86850; 86900; 86901; 86920; 87086; 96374; 96375; 99285; C9113; G0378; J1756; J2405; J7050; P9016

== ENCOUNTER 2016-11-04 20:37 | Emergency (ER) | payer SELFPAY ==
[~2016-11-04] VITALS: Ht 160 cm; Wt 173.0 kg
[~2016-11-04 20:37] MED LIST changes: -CIPR250T2 PO; +FERR325T PO; +SPRI28TA PO; -ZOFR4TAB3 PO
[2016-11-04 20:39] VITALS: BP 125/68; PULSE 80; RESP 16; TEMP 98.3; O2SAT 95
[2016-11-04 22:23] VITALS: BP 145/74; PULSE 85; RESP 18; O2SAT 100
--- NOTE | 2016-11-04 22:26 | PD ---
HPI Chief Complaint: Recruiting Intern Problem/Complaint Time Seen by Provider: 22:18 Travel History International Travel<30 days: No Contact w/Intl Traveler<30days: No Traveled to known affect area: No History of Present Illness HPI 26-year-old female complains of low abdominal pain and vaginal bleeding. Patient has history of menorrhagia and irregular menstruation period for the past 6 months. Patient has been seen by personal physician and was admitted to [facility] October 26 and discharged October 27 for anemia and dysfunctional uterine bleeding. Patient had pelvic ultrasound done in August 2015 which was normal. Patient was on control pills for her irregular periods. Patient states that she stopped taking her pills about a month ago. Patient states that she has persistent vaginal bleeding since discharge from the hospital. Patient started having low abdominal pelvic pain for the past 3 days. Patient states the pain cramping pain started on lower abdomen with radiation up to the abdomen. Patient denies any nausea vomiting diarrhea. Patient denies any dysuria or frequency. Patient denies any fever chills. Patient denies any back pain. Patient states that she took Aleve for pain. On A scale of 1-10 the pain is an 8. PFSH Past Medical History Asthma: No Blood Disorders: Yes (heavy bleeding during menses) Anxiety: Yes Depression: No Cancer: No Cardiovascular Problems: No COPD: No Diabetes: No Diminished Hearing: No Endocrine: No Genitourinary: No Immune Disorder: No Musculoskeletal: No Neurologic: No Psychiatric: No Reproductive: No Respiratory: Yes Immunizations Current: Yes Sleep Apnea: Yes Past Surgical History Tonsillectomy: Yes Other Surgery: Yes (TONISELLECTOMY) Social History Alcohol Use: No Tobacco Use: No Substance Use: No Allergies-Medications (Allergen,Severity, Reaction): Coded Allergies: Decadron (Verified Allergy, Intermediate, Drowsiness, 11/04/16) Adhesives (Verified Allergy, Mild, 11/04/16) Dilaudid (Verified Allergy, Unknown, 11/04/16) Reported Meds & Prescriptions Reported Meds & Active Scripts Active Ferrous Sulfate 325 Mg Tab 325 Mg PO BID Review of Systems General / Constitutional: No: Fever Eyes: No: Visual changes HENT: No: Headaches Cardiovascular: No: Chest Pain or Discomfort Respiratory: No: Shortness of Breath Gastrointestinal: Positive: Abdominal Pain Genitourinary: Positive: Vaginal Bleeding, No: Dysuria Musculoskeletal: No: Pain Skin: No Rash Neurologic: No: Weakness Psychiatric: No: Depression Endocrine: No: Polydipsia Hematologic/Lymphatic: No: Easy Bruising Physical Exam Narrative GENERAL: Well-nourished, well-developed patient. SKIN: Warm and dry. HEAD: Normocephalic. EYES: No scleral icterus. No injection or drainage. NECK: Supple, trachea midline. No JVD or lymphadenopathy. CARDIOVASCULAR: Regular rate and rhythm without murmurs, gallops, or rubs. RESPIRATORY: Breath sounds equal bilaterally. No accessory muscle use. GASTROINTESTINAL: Abdomen soft, nondistended. Mild to moderate tenderness on palpation of the lower abdomen midabdomen area. No rebound tenderness. No mass. MUSCULOSKELETAL: No cyanosis, or edema. BACK: Nontender without obvious deformity. No CVA tenderness. Data Data Last Documented VS Vital Signs Date Time Temp Pulse Resp B/P Pulse Ox O2 Delivery O2 Flow Rate FiO2 11/05/16 01:25 80 20 118/56 98 11/04/16 22:23 Room Air 11/04/16 20:39 98.3 Orders Complete Blood Count With Diff (11/04/16 22:18) Comprehensive Metabolic Panel (11/04/16 22:18) Prothrombin Time / Inr (Pt) (11/04/16 22:18) Act Partial Throm Time (Ptt) (11/04/16 22:18) Lipase (11/04/16 22:18) Urinalysis - C+S If Indicated (11/04/16 22:18) Iv Access Insert/Monitor (11/04/16 22:18) Ed Urine Pregnancytest Poc (11/04/16 22:18) Ketorolac Inj (Toradol Inj) (11/04/16 22:30) Urine Culture (11/04/16 22:45) Labs Laboratory Tests Test 11/04/16 11/04/16 00:35 22:45 White Blood Count 10.1 TH/MM3 Red Blood Count 3.93 MIL/MM3 Hemoglobin 8.7 GM/DL Hematocrit 27.0 % Mean Corpuscular Volume 68.9 FL Mean Corpuscular Hemoglobin 22.3 PG Mean Corpuscular Hemoglobin 32.3 % Concent Red Cell Distribution Width 23.2 % Platelet Count 478 TH/MM3 Mean Platelet Volume 7.6 FL Neutrophils (%) (Auto) 71.9 % Lymphocytes (%) (Auto) 21.1 % Monocytes (%) (Auto) 4.5 % Eosinophils (%) (Auto) 2.1 % Basophils (%) (Auto) 0.4 % Neutrophils # (Auto) 7.2 TH/MM3 Lymphocytes # (Auto) 2.1 TH/MM3 Monocytes # (Auto) 0.5 TH/MM3 Eosinophils # (Auto) 0.2 TH/MM3 Basophils # (Auto) 0.0 TH/MM3 CBC Comment AUTO DIFF Prothrombin Time 10.1 SEC Prothromb Time International 0.9 RATIO Ratio Activated Partial 28.6 SEC Thromboplast Time Urine Color YELLOW Urine Turbidity HAZY Urine pH 6.5 Urine Specific [place] 1.012 Urine Protein TRACE mg/dL Urine Glucose (UA) NEG mg/dL Urine Ketones NEG mg/dL Urine Occult Blood LARGE Urine Nitrite NEG Urine Bilirubin NEG Urine Urobilinogen LESS THAN 2.0 MG/DL Urine Leukocyte Esterase LARGE Urine RBC /hpf Urine WBC 36 /hpf Urine Squamous Epithelial 5 /hpf Cells Urine Bacteria OCC /hpf Microscopic Urinalysis Comment CULTURE INDICATED Sodium Level 138 MEQ/L Potassium Level 4.6 MEQ/L Chloride Level 103 MEQ/L Carbon Dioxide Level 29.0 MEQ/L Anion Gap 6 MEQ/L Blood Urea Nitrogen 8 MG/DL Creatinine 0.77 MG/DL Estimat Glomerular Filtration 111 ML/MIN Rate Random Glucose 81 MG/DL Calcium Level 8.7 MG/DL Total Bilirubin 0.3 MG/DL Aspartate Amino Transf 44 U/L (AST/SGOT) Alanine Aminotransferase 21 U/L (ALT/SGPT) Alkaline Phosphatase 62 U/L Total Protein 8.3 GM/DL Albumin 3.5 GM/DL Lipase 73 U/L [facility] Medical Decision Making Medical Screen Exam Complete: Yes Emergency Medical Condition: Yes Interpretation(s) 23:52 PM. UA positive for RBC, CBC. CBC, patient's at baseline. Differential Diagnosis Differential diagnosis including dysmenorrhea, UTI, pyelonephritis, nephrolithiasis, colitis. Narrative Course 26-year-old female with low abdominal pain and vaginal bleeding. History of anemia and dysfunctional uterine bleeding. Diagnosis Primary Impression: Dysmenorrhea Additional Impressions: Dysfunctional uterine bleeding Anemia Qualified Code: D50.0 - Iron deficiency anemia due to chronic blood loss Patient Instructions: General Instructions Additional Instructions: Follow-up with MICROFILM TECHNICIAN as directed. Take -control pills as directed. Return if worse. Cristela as needed for pain. Disposition: 01 DISCHARGE HOME Condition: Stable Serge Ramirez MD Nov 04, 2016 22:26
[2016-11-04] MEDS ORDERED: KETOROLAC TROMETHAMINE 30 MG/ML (IVP) VIAL IV PUSH ONE (22:30)
[2016-11-04 23:42] LABS: BACTERIA, URINE OCC /hpf; BLOOD, URINE LARGE (NEG); COMMENT (UR) CULTURE INDICATED; CULTURE IF INDICATED CULTURE INDICATED; GLUCOSE,URINE NEG (NEG); KETONE, URINE NEG (NEG); NITRITE,URINE NEG (NEG); PH, URINE 6.5 (5.0-8.5); SQUAMOUS EPITHELIAL CELL URINE 5 /hpf (0-5); URINE COLOR YELLOW (YELLW/STRAW)
[2016-11-04 23:53] LABS: APTT (PATIENT) 28.6 SEC (24.3-30.1); INTERNATIONAL NORMALIZED RATIO 0.9 RATIO; PROTHROMBIN TIME - PATIENT 10.1 SEC (9.8-11.6)
[2016-11-05 00:06] LABS: ALT (GPT) 21 U/L (10-53); ANION GAP 6 MEQ/L (5-15); AST (GOT) 44 U/L (15-37); BLOOD UREA NITROGEN 8 MG/DL (7-18); CHLORIDE 103 MEQ/L (98-107); GLOMERULAR FILTRATION RATE 111 ML/MIN (>89); POTASSIUM 4.6 MEQ/L (3.5-5.1); SODIUM (NA) 138 MEQ/L (136-145)
[2016-11-05 00:07] LABS: ALKALINE PHOSPHATASE 62 U/L (45-117); TOTAL BILIRUBIN ADULT 0.3 MG/DL (0.2-1.0)
[2016-11-05 01:25] VITALS: BP 118/56
[2016-11-05 02:39] LABS: AUTOMATED NEUTROPHIL # 7.2 TH/MM3 (1.8-7.7); BASOPHIL % 0.4 % (0.0-2.0); EOSINOPHIL # 0.2 TH/MM3 (0-0.4); EOSINOPHIL % 2.1 % (0.0-4.0); LYMPH % 21.1 % (9.0-44.0); LYMPHOCYTE # 2.1 TH/MM3 (1.0-4.8); MEAN CELL VOLUME 68.9 FL (80.0-100.0); MEAN CORPUSCULAR HEMOGLOBIN 22.3 PG (27.0-34.0); MEAN CORPUSCULAR HGB CONC 32.3 % (32.0-36.0); MONO % 4.5 % (0.0-8.0); NEUT % 71.9 % (16.0-70.0); PLATELET COUNT 478 TH/MM3 (150-450); RED BLOOD COUNT 3.93 MIL/MM3 (4.00-5.30); RED CELL DISTRIBUTION WIDTH 23.2 % (11.6-17.2); WHITE BLOOD COUNT 10.1 TH/MM3 (4.0-11.0)
[2016-11-05 02:40] LABS: HEMO FLAGS AUTO DIFF
[2016-11-05 04:30] LABS: OVALOCYTES 1+ (NORMAL)
[2016-11-05 04:31] LABS: KERATOCYTES 1+ (NORMAL); SCAN/DIFF AUTO DIFF CONFIRMED
== END 2016-11-05 01:25 | disposition home or self-care (01) ==
LOC: NEPC 20:37
DX: N94.6 Dysmenorrhea, unspecified (principal); N93.8 Other specified abnormal uterine and vaginal bleeding; D64.9 Anemia, unspecified
CPT/HCPCS: 80053; 81001; 83690; 84703; 85025; 85610; 85730; 87086; 96374; 99283; J1885

== ENCOUNTER 2017-05-24 16:18 | Emergency (ER) | payer OTHER ==
[~2017-05-24] VITALS: Ht 160 cm; Wt 150.0 kg
[~2017-05-24 16:18] MED LIST changes: -SPRI28TA PO
[2017-05-24 16:22] VITALS: BP 143/73; PULSE 74; RESP 17; TEMP 98.8; O2SAT 94
--- NOTE | 2017-05-24 16:32 | PD ---
Physical Exam Time Seen by Provider: 16:30 Narrative 27-year-old female presents to emergency Department with complaint of pelvic pain, vomiting, vaginal bleeding since Sunday. Says the vaginal bleeding as her menses. Since the pelvic pain is abnormal for her periods. Denies fever. Patient seen in triage. Vital signs reviewed. Patient awaiting bed placement. Data Data Last Documented VS Vital Signs Date Time Temp Pulse Resp B/P (MAP) Pulse Ox O2 Delivery O2 Flow Rate FiO2 05/24/17 16:22 98.8 74 17 143/73 (96) 94 Room Air MDM Supervised Visit with MARGARITO: Linda Hopkins May 24, 2017 16:32
[2017-05-24] MEDS ORDERED: FERR325T8 PO (17:27)
[2017-05-24] MEDS ORDERED: SODIUM CHLOR 0.9% 1000 ML INJ 1,000 ML IV SCH (17:57)
[2017-05-24] MEDS ORDERED: ONDANSETRON HCL 4 MG/2 ML VIAL IVP ONE (18:00)
--- NOTE | 2017-05-24 18:06 | PD ---
HPI Chief Complaint: GI Complaint Time Seen by Provider: 17:52 Travel History International Travel<30 days: No Contact w/Intl Traveler<30days: No Traveled to known affect area: No History of Present Illness HPI patient c/o llq area pain, sharp, nonradiating, 8/10, some nausea but no v/d/ fever pcp-no all:decadron and dilaudid makes her n/v pshx: teratoma removal pmhx: none regular medications: none PFSH Past Medical History Anemia: Yes Asthma: No Blood Disorders: Yes (heavy bleeding during menses) Anxiety: Yes Depression: No Cancer: No Cardiovascular Problems: No COPD: No Diabetes: No Diminished Hearing: No Endocrine: No Genitourinary: No Immune Disorder: No Musculoskeletal: No Neurologic: No Psychiatric: No Reproductive: No Respiratory: Yes Immunizations Current: Yes Sleep Apnea: Yes ?: Not LMP: 05/21/17 Ovarian Cysts: Yes (HX) Past Surgical History Abdominal Surgery: Yes ("STOMACH TUMOR") Tonsillectomy: Yes Social History Alcohol Use: No Tobacco Use: No Substance Use: No Allergies-Medications (Allergen,Severity, Reaction): Coded Allergies: dexamethasone (Verified Allergy, Intermediate, Drowsiness, 05/24/17) adhesive (Verified Allergy, Mild, 05/24/17) hydromorphone (Verified Allergy, Unknown, 05/24/17) Reported Meds & Prescriptions Reported Meds & Active Scripts Active Reported Ferrous Sulfate 325 Mg (65 Mg Iron) Tablet 325 Mg PO BIDPC Review of Systems Except as stated in HPI: all other systems reviewed are Neg Gastrointestinal: Positive: Nausea, Abdominal Pain Physical Exam Narrative GENERAL: SKIN: Warm and dry. HEAD: Atraumatic. Normocephalic. EYES: Pupils equal and round. No scleral icterus. No injection or drainage. ENT: No nasal bleeding or discharge. Mucous membranes pink and moist. NECK: Trachea midline. No JVD. CARDIOVASCULAR: Regular rate and rhythm. RESPIRATORY: No accessory muscle use. Clear to auscultation. Breath sounds equal bilaterally. GASTROINTESTINAL: Abdomen soft, non-tender, nondistended. minimal ttp over left adnexal/suprapubic area, no rigidity/rebound/guarding MUSCULOSKELETAL: Extremities without clubbing, cyanosis, or edema. No obvious deformities. NEUROLOGICAL: Awake and alert. No obvious cranial nerve deficits. Motor grossly within normal limits. Five out of 5 muscle strength in the arms and legs. Normal speech. PSYCHIATRIC: Appropriate mood and affect; insight and judgment normal. Data Data Last Documented VS Vital Signs Date Time Temp Pulse Resp B/P (MAP) Pulse Ox O2 Delivery O2 Flow Rate FiO2 05/24/17 16:22 98.8 74 17 143/73 (96) 94 Room Air Orders Orders Complete Blood Count With Diff (05/24/17 17:57) Comprehensive Metabolic Panel (05/24/17:57) Lipase (05/24/17 17:57) Prothrombin Time / Inr (Pt) (05/24/17:57) Act Partial Throm Time (Ptt) (05/24/17:57) Urinalysis - C+S If Indicated (05/24/17:57) Ct Abd/Pel W/O Iv Contrast (05/24/17:57) Iv Access Insert/Monitor (05/24/17:57) Ecg Monitoring (05/24/17:57) Oximetry (05/24/17:57) NPO (05/24/17:57) Ondansetron Inj (Zofran Inj) (05/24/17 18:00) Sodium Chlor 0.9% 1000 Ml Inj (Ns 1000 M (05/24/17 17:57) Urine Culture (05/24/17 18:12) Labs Laboratory Tests Test 05/24/17 18:12 White Blood Count 5.7 TH/MM3 Red Blood Count 4.54 MIL/MM3 Hemoglobin 10.4 GM/DL Hematocrit 33.2 % Mean Corpuscular Volume 73.1 FL Mean Corpuscular Hemoglobin 23.0 PG Mean Corpuscular Hemoglobin Concent 31.4 % Red Cell Distribution Width 20.7 % Platelet Count 434 TH/MM3 Mean Platelet Volume 7.7 FL Neutrophils (%) (Auto) 61.3 % Lymphocytes (%) (Auto) 27.7 % Monocytes (%) (Auto) 8.3 % Eosinophils (%) (Auto) 2.0 % Basophils (%) (Auto) 0.7 % Neutrophils # (Auto) 3.5 TH/MM3 Lymphocytes # (Auto) 1.6 TH/MM3 Monocytes # (Auto) 0.5 TH/MM3 Eosinophils # (Auto) 0.1 TH/MM3 Basophils # (Auto) 0.0 TH/MM3 CBC Comment DIFF FINAL Differential Comment Prothrombin Time 10.6 SEC Prothromb Time International Ratio 1.0 RATIO Activated Partial Thromboplast Time 29.9 SEC Urine Color YELLOW Urine Turbidity HAZY Urine pH 7.5 Urine Specific [place] 1.015 Urine Protein 30 mg/dL Urine Glucose (UA) NEG mg/dL Urine Ketones NEG mg/dL Urine Occult Blood LARGE Urine Nitrite POS Urine Bilirubin NEG Urine Urobilinogen LESS THAN 2.0 MG/DL Urine Leukocyte Esterase LARGE Urine RBC /hpf Urine WBC 156 /hpf Urine Squamous Epithelial Cells 4 /hpf Urine Amorphous Sediment RARE Urine Bacteria MANY /hpf Microscopic Urinalysis Comment CULTURE INDICATED Blood Urea Nitrogen 10 MG/DL Creatinine 0.80 MG/DL Random Glucose 85 MG/DL Total Protein 7.3 GM/DL Albumin 3.2 GM/DL Calcium Level 8.2 MG/DL Alkaline Phosphatase 68 U/L Aspartate Amino Transf (AST/SGOT) 11 U/L Alanine Aminotransferase (ALT/SGPT) 13 U/L Total Bilirubin 0.1 MG/DL Sodium Level 139 MEQ/L Potassium Level 4.0 MEQ/L Chloride Level 104 MEQ/L Carbon Dioxide Level 27.9 MEQ/L Anion Gap 7 MEQ/L Estimat Glomerular Filtration Rate 106 ML/MIN Lipase 70 U/L [facility] Medical Decision Making Medical Screen Exam Complete: Yes Emergency Medical Condition: Yes Medical Record Reviewed: Yes Differential Diagnosis colitis v divertic v ectopic v uti Narrative Course ct neg for colitis/divertic or ectopic , patient made aware of findings and advised Diagnosis Primary Impression: Urinary tract infection Qualified Codes: N30.00 - Acute cystitis without hematuria Additional Impression: Ovarian cyst Qualified Codes: N83.202 - Unspecified ovarian cyst, left side Patient Instructions: General Instructions, Urinary Tract Infection in Women ( ED) Scripts Ondansetron Odt (Zofran Odt) 4 Mg Tab 4 MG SL Q6HR Y for Nausea/Vomiting, #20 TAB 0 Refills Prov: Tao Hodges MD 05/24/17 Tramadol (Ultram) 50 Mg Tab 50 MG PO Q4H Y for PAIN, #20 TAB 0 Refills Prov: Tao Hodges MD 05/24/17 Nitrofurantoin Monohydrate Macrocrystals (Macrobid) 100 Mg Cap 100 MG PO BID for Infection, #20 CAP 0 Refills Prov: Tao Hodges MD 05/24/17 Disposition: 01 DISCHARGE HOME Condition: Stable Tao Hodges MD May 24, 2017 18:06
[2017-05-24 18:26] LABS: AUTOMATED NEUTROPHIL # 3.5 TH/MM3 (1.8-7.7); BASOPHIL % 0.7 % (0.0-2.0); EOSINOPHIL # 0.1 TH/MM3 (0-0.4); HEMATOCRIT 33.2 % (35.0-46.0); HEMO FLAGS DIFF FINAL; LYMPH % 27.7 % (9.0-44.0); LYMPHOCYTE # 1.6 TH/MM3 (1.0-4.8); MEAN CELL VOLUME 73.1 FL (80.0-100.0); MEAN CORPUSCULAR HGB CONC 31.4 % (32.0-36.0); MONO % 8.3 % (0.0-8.0); NEUT % 61.3 % (16.0-70.0); PLATELET COUNT 434 TH/MM3 (150-450); RED BLOOD COUNT 4.54 MIL/MM3 (4.00-5.30); RED CELL DISTRIBUTION WIDTH 20.7 % (11.6-17.2); WHITE BLOOD COUNT 5.7 TH/MM3 (4.0-11.0)
[2017-05-24 18:33] LABS: BACTERIA, URINE MANY /hpf; BLOOD, URINE LARGE (NEG); COMMENT (UR) CULTURE INDICATED; CULTURE IF INDICATED CULTURE INDICATED; GLUCOSE,URINE NEG (NEG); KETONE, URINE NEG (NEG); NITRITE,URINE POS (NEG); PH, URINE 7.5 (5.0-8.5); SQUAMOUS EPITHELIAL CELL URINE 4 /hpf (0-5); URINE COLOR YELLOW (YELLW/STRAW)
[2017-05-24 18:45] LABS: APTT (PATIENT) 29.9 SEC (24.3-30.1); PROTHROMBIN TIME - PATIENT 10.6 SEC (9.8-11.6)
[2017-05-24 18:51] LABS: ANION GAP 7 MEQ/L (5-15); AST (GOT) 11 U/L (15-37); BICARBONATE 27.9 MEQ/L (21.0-32.0); BLOOD UREA NITROGEN 10 MG/DL (7-18); CHLORIDE 104 MEQ/L (98-107); GLOMERULAR FILTRATION RATE 106 ML/MIN (>89); SODIUM (NA) 139 MEQ/L (136-145)
[2017-05-24 18:52] LABS: ALT (GPT) 13 U/L (10-53)
[2017-05-24 18:54] LABS: ALKALINE PHOSPHATASE 68 U/L (45-117); TOTAL BILIRUBIN ADULT 0.1 MG/DL (0.2-1.0)
--- NOTE | 2017-05-24 19:14 | RADRPT ---
EXAM DATE/TIME: 05/24/2017 18:54 [place] COMPARISON: No previous studies available for comparison. INDICATIONS : Left flank pain with nausea. ORAL CONTRAST: No oral contrast ingested. RADIATION DOSE: 21.24 CTDIvol (mGy) ; Patient body habitus MEDICAL HISTORY : None SURGICAL HISTORY : Ovarian cysts. ENCOUNTER: Initial ACUITY: 3 days PAIN SCALE: 8/10 LOCATION: Left flank TECHNIQUE: Volumetric scanning of the abdomen and pelvis was performed. Using automated exposure control and ad justment of the mA and/or kV according to patient size, radiation dose was kept as low as reasonably achievable to obtain optimal diagnostic quality images. DICOM format image data is available electro nically for review and comparison. FINDINGS: Lung bases are clear. Mild fatty liver. Spleen, adrenals, kidneys and pancreas unremarkable. No calci fied gallstones or biliary ductal dilatation. There is thickening of the left side of the bladder wall etiology. No acute bony abnormality. CONCLUSION: 1. Nonspecific thickening of the left bladder wall of unknown etiology. Consider inflammatory change although cannot exclude other mucosal lesions. 2. No bowel obstruction, free air or free fluid. No evidence for obstructive uropathy. Fermin Real MD on May 24, 2017 at 19:09 Board Certified Radiologist. This report was verified electronically.
[2017-05-24] MEDS ORDERED: ULTR50TA5 PO (19:49)
[2017-05-24] MEDS ORDERED: ZOFR4TAB3 SL (19:49)
[2017-05-24] MEDS ORDERED: MACR100C2 PO (19:49)
[2017-05-24 20:13] VITALS: BP 140/75
[2017-05-24 20:44] VITALS: BP 139/70; PULSE 72; RESP 18; O2SAT 96
== END 2017-05-24 20:45 | disposition home or self-care (01) ==
LOC: NEPD 16:18
DX: N30.00 Acute cystitis without hematuria (principal); N83.202 Unspecified ovarian cyst, left side; F41.9 Anxiety disorder, unspecified
CPT/HCPCS: 74176; 80053; 81001; 83690; 85025; 85610; 85730; 87077; 87086; 87186; 96361; 96374; 99285; J2405; J7030

== ENCOUNTER 2017-07-06 09:58 | Emergency (ER) | payer OTHER ==
[~2017-07-06] VITALS: Ht 160 cm; Wt 160.0 kg
[~2017-07-06 09:58] MED LIST changes: -FERR325T PO; +FERR325T18 PO; +MACR100C2 PO; +TRAM50 PO; +ZOFR4TAB3 SL
[2017-07-06 10:00] VITALS: BP 147/74; PULSE 84; RESP 16; TEMP 98.4; O2SAT 100
--- NOTE | 2017-07-06 11:19 | PD ---
Physical Exam Date Seen by Provider: Jul 06, 2017 Time Seen by Provider: 11:15 Narrative Right-sided facial droop for several weeks. Data Data Last Documented VS Vital Signs Date Time Temp Pulse Resp B/P (MAP) Pulse Ox O2 Delivery O2 Flow Rate FiO2 07/06/17 10:00 98.4 84 16 147/74 (98) 100 MDM Supervised Visit with MARGARITO: Yes Narrative Course I, Dr. Liu, have reviewed the advance practice practitioner's documentation and am in agreement, met with the patient face to face, made the diagnosis, and the medical decision making was done by me. *My assessment and Findings: Right sided facial weakness including the forehead muscles. Please see Lucy Palomo NP's note for results of laboratory and radiographic evaluation, ED course, final diagnosis and disposition Dena Liu MD Jul 06, 2017 11:19
[2017-07-06] MEDS ORDERED: PRED20 PO (11:20)
--- NOTE | 2017-07-06 11:22 | PD ---
HPI . Rivas's palsy Chief Complaint: Pain: Acute or Chronic Time Seen by Provider: 10:27 Travel History International Travel<30 days: No Contact w/Intl Traveler<30days: No Traveled to known affect area: No History of Present Illness HPI 27-year-old female presents emergency department for evaluation of right-sided facial weakness and pain behind the right ear that radiates below the ear into the cheek. Patient states the symptoms started approximately 3 weeks ago but have gotten progressively worse. Patient denies any fever, chills, malaise, shortness breath, chest pain, nausea, vomiting, diarrhea or lightheadedness. Patient states she is unable to close her right eye fully and there is subsequent tearing from the eye. Patient states she is noticing she is drooling from the right side of her mouth intermittently. Patient denies any major medical history and does not take any daily medication. PFSH Past Medical History Anemia: Yes Asthma: No Blood Disorders: Yes (heavy bleeding during menses) Anxiety: Yes Depression: No Cancer: No Cardiovascular Problems: No COPD: No Diabetes: No Diminished Hearing: No Endocrine: No Genitourinary: No Immune Disorder: No Musculoskeletal: No Neurologic: No Psychiatric: No Reproductive: No Respiratory: Yes Immunizations Current: Yes Sleep Apnea: Yes ?: Not LMP: 06/05 Ovarian Cysts: Yes (HX) Past Surgical History Abdominal Surgery: Yes ("STOMACH TUMOR") Tonsillectomy: Yes Other Surgery: Yes ("SACRAL COCCYGEAL TERRATOMA REMOVAL AT ") Social History Alcohol Use: No Tobacco Use: No Substance Use: No Allergies-Medications (Allergen,Severity, Reaction): Coded Allergies: dexamethasone (Verified Allergy, Intermediate, Drowsiness, 05/24/17) adhesive (Verified Allergy, Mild, 05/24/17) hydromorphone (Verified Allergy, Unknown, 05/24/17) Reported Meds & Prescriptions Reported Meds & Active Scripts Active Prednisone 20 Mg Tab 80 Mg PO DAILY 7 Days Review of Systems Except as stated in HPI: all other systems reviewed are Neg Physical Exam Narrative GENERAL: Well-nourished, well-developed 27-year-old female patient in no acute distress. Nontoxic appearing. SKIN: Focused skin assessment warm/dry. HEAD: Normocephalic. Atraumatic. NEUROLOGICAL: Awake and alert. Right-sided facial paralysis. Otherwise, Motor and sensory grossly within normal limits. Five out of 5 muscle strength in all muscle groups. Normal speech. EYES: No scleral icterus. No injection or drainage. NECK: Supple, trachea midline. No JVD or lymphadenopathy. CARDIOVASCULAR: Regular rate and rhythm without murmurs, gallops, or rubs. RESPIRATORY: Breath sounds equal bilaterally. No accessory muscle use. GASTROINTESTINAL: Abdomen soft, non-tender, nondistended. MUSCULOSKELETAL: No cyanosis, or edema. Data Data Last Documented VS Vital Signs Date Time Temp Pulse Resp B/P (MAP) Pulse Ox O2 Delivery O2 Flow Rate FiO2 07/06/17 11:33 07/06/17 10:00 98.4 84 16 100 Orders Orders Ed Discharge Order (07/06/17 11:22) [facility] Medical Decision Making Medical Screen Exam Complete: Yes Emergency Medical Condition: Yes Differential Diagnosis Differential diagnoses includes but are not limited to rivas's palsy, Guillain- Mulberry syndrome, herpes zoster Narrative Course 27-year-old female patient presents emergency department for evaluation of right -sided facial paralysis. Patient states the symptoms started 3 weeks ago but have grown progressively worse. She has no neurological deficit outside the facial paralysis. Patient's speech is normal. Patient is a major medical history. Patient's physical exam is consistent with Rivas's palsy. Patient is discharged home with 7 days worth of high dose prednisone, instructions to protect her right eye and keep it lubricated and instructions to return the emergency Department with any worsening condition but otherwise follow up with primary care. Diagnosis Primary Impression: Rivas's palsy Referrals: Primary Care Physician Patient Instructions: Rivas Palsy (ED), General Instructions Additional Instructions: Please return to emergency department if your symptoms return or worsen. Follow up with your primary care provider. Take prednisone as prescribed. Use protection for right eye, lubrication and cover the eye when sleeping. Med/Other Pt SpecificInfo: Prescription(s) given Scripts Prednisone (Prednisone) 20 Mg Tab 80 MG PO DAILY for 7 Days, #7 TAB 0 Refills Prov: Lucy Palomo Cintia IAN 07/06/17 Disposition: 01 DISCHARGE HOME Condition: Stable DeweyLucy aleman Cintia SOSA Jul 06, 2017 11:22
== END 2017-07-06 11:33 | disposition home or self-care (01) ==
LOC: NEPD 09:58
DX: G51.0 Bell's palsy (principal); F41.9 Anxiety disorder, unspecified; D64.9 Anemia, unspecified; Z79.899 Other long term (current) drug therapy; Z88.5 Allergy status to narcotic agent; Z88.8 Allergy status to other drugs, medicaments and biological substances
CPT/HCPCS: 99283

== ENCOUNTER 2018-05-06 17:56 | Inpatient (IN) ==
[2018-05-06] MEDS ORDERED: Acetaminophen 325 MG Tablet PO PRN (21:18)
[2018-05-06] MEDS ORDERED: Bisacodyl 10 MG Supp RECTAL PRN (21:18)
[2018-05-06] MEDS ORDERED: Sodium Chlor 0.9% Inj 250 ML IV.SIG SCH (22:00)
--- NOTE | 2018-05-07 01:28 | P.HPIM ---
History of Present Illness Service: [facility] hospitalist . Primary Care Physician: UNKNOWN Chief Complaint: Headache dizziness History of Present Illness: Ms. Herrera is a 28-year-old female with a history of iron deficiency anemia and menometrorrhagia who was seen in the emergency department and [place] for left- sided headache and dizziness and was found to have severe anemia with a hemoglobin of 6.0. The patient reports menorrhagia persistently present since January. She is transferred to [facility] for blood transfusion and gynecology consultation under the hospitalist service. The patient is seen in her hospital room after arrival from [place]. She reports that she came to the emergency room to be evaluated for headaches that she has been having daily for the past 3 weeks. Headaches have been located in the left frontal region and began to progress to her ear and down the back of her neck with associated light sensitivity. Started to notice that she was feeling dizzy intermittently. Her headaches started in the morning and were relieved with Tylenol or ibuprofen. However, upon awakening the next day, she would have another headache. She denies any nausea vomiting or diarrhea or unilateral weakness. She denies any paresthesias. She denies any recent fever or chills. She does report a heavy menses since January that has been ongoing daily and saturating about 4 pads daily. She states she was tried on control for this about a year and a half ago but was unable to tolerate it. She denies any history of migraines. She denies having headaches like this during her last episode of iron deficiency anemia. Currently, she denies any pain. She had left cerumen impaction noted by ER provider. A left ear lavage was ordered but not performed in [place] ER. She reports some ankle swelling when feet are in a dependent position for prolonged periods of time. None noted during exam today. Inpatient Certification: I certify that the inpatient services were ordered in accordance with Medicare regulations governing the order. This includes certification that hospital inpatient services are reasonable and necessary and in the case of services not specified as inpatient-only under 42 CFR 419.22(n), that they are appropriately provided as inpatient services in accordance to with the 2-midnight benchmark under 43 CFR 412.3(e) Estimated Total Length of Stay (Days): 2 Plans for Post Hospital Care: Home Review of Systems All other systems reviewed negative except as stated in HPI PMFSH - History History Provided By: Patient - Medical History Medical History: Medical History (Last Updated 05/07/18 @ 02:44 by IAN Cummings) Iron deficiency anemia Menometrorrhagia - Surgical History Surgical History: Surgical History (Last Updated 05/07/18 @ 02:45 by IAN Cummings) Teratoma - Family History Family History: Family History (Last Updated 05/07/18 @ 02:45 by IAN Cummings) Father Family history of diabetes mellitus Grandparent Stroke Hypertension Grandparent Stroke Hypertension - Tobacco History Second Hand Smoke Exposure: No Smoking Status: Never smoker - Alcohol History How Often Do You Have a Drink Containing Alcohol: Never - Substance Use History Substance History: No History of Abuse Medications and Allergies Active Medications: Active Medications Acetaminophen (Tylenol) 650 mg PO Q4H PRN PRN Reason: Temp > 100.4 Bisacodyl (Dulcolax Supp) 10 mg RECTAL DAILY PRN PRN Reason: SEVERE CONSITIPATION Sodium Chloride (Ns Inj) 1,000 mls @ 100 mls/hr IV.CONT .Q10H MARVA Sodium Chloride (Ns Inj) 250 mls @ 15 mls/hr IV.SIG ONCE MARVA Stop: 05/07/18 14:39 Ondansetron HCl (Zofran Inj) 4 mg IV.PUSH Q6H PRN PRN Reason: NAUSEA OR VOMITING Sennosides (Senokot) 17.2 mg PO Q12H PRN PRN Reason: Moderate Constipation Allergies Allergy/AdvReac Type Severity Reaction Status Date / Time dexamethasone Allergy Intermediate Drowsiness Verified 05/06/18 18:00 adhesive Allergy Mild Rash Verified 05/06/18 18:00 hydromorphone Allergy Unknown Hives Verified 05/06/18 18:00 Home Medications Medication Instructions Recorded Confirmed Type No Known Home Medications 05/06/18 05/07/18 History Exam Vital signs: Vital Signs 05/07/18 01:09 Temperature 98.1 F Pulse Rate 90 Respiratory Rate 18 Blood Pressure 131/73 Pulse Oximetry 99 Narrative: GENERAL: This is a resident, morbidly obese female patient, in no apparent distress. SKIN: No rashes, ecchymoses or lesions. Cool and dry. HEAD: Atraumatic. Normocephalic. EYES: No scleral icterus. No injection or drainage. Pupils equal round and reactive to light and accommodation. Extraocular movements intact. No nystagmus noted. ENT: Nose without bleeding, purulent drainage. NECK: Trachea midline. No JVD or lymphadenopathy. CARDIOVASCULAR: Regular rate and rhythm without murmurs, gallops, or rubs. RESPIRATORY: Clear to auscultation. Breath sounds equal bilaterally. No wheezes , rales, or rhonchi. GASTROINTESTINAL: Abdomen soft, non-tender, nondistended. No guarding. MUSCULOSKELETAL: Extremities without clubbing, cyanosis, or edema. No calf tenderness. NEUROLOGICAL: Awake and alert and oriented 3. Cranial nerves II through XII grossly intact. Motor and sensory grossly within normal limits. Normal speech. . Caprini VTE Risk Assessment Caprini VTE Risk Assessment: No/Low Risk (score <= 1) Caprini Risk Assessment Model: Point Value = 1 Point Value = 2 Point Value = 3 Point Value = 5 Age 41-60 Minor surgery BMI > 25 kg/m2 Swollen legs Varicose veins or History of unexplained or recurrent spontaneous Oral contraceptives or hormone replacement Sepsis (< 1 month) Serious lung disease, including pneumonia (< 1 month) Abnormal pulmonary function Acute myocardial infarction Congestive heart failure (< 1 month) History of inflammatory bowel disease Medical patient at bed rest Age 61-74 Arthroscopic surgery Major open surgery (> 45 min) Laparoscopic surgery (> 45 min) Malignancy Confined to bed (> 72 hours) Immobilizing plaster cast Central venous access Age >= 75 History of VTE Family history of VTE Factor V Leiden Prothrombin [id number] Lupus anticoagulant Anticardiolipin antibodies Elevated serum homocysteine Heparin-induced thrombocytopenia Other congenital or acquired thrombophilia Stroke (< 1 month) Elective arthroplasty Hip, pelvis, or leg fracture Acute spinal cord injury (< 1 month) Prophylaxis Regimen: Total Risk Factor Score Risk Level Prophylaxis Regimen 0-1 Low Early ambulation 2 Moderate Order ONE of the following: *Sequential Compression Device (SCD) *Heparin 5000 units SQ BID 3-4 Higher Order ONE of the following medications: *Heparin 5000 units SQ TID *Enoxaparin/Lovenox 40 mg SQ daily (WT < 150 kg, CrCl > 30 mL/min) *Enoxaparin/Lovenox 30 mg SQ daily (WT < 150 kg, CrCl > 10-29 mL/min) *Enoxaparin/Lovenox 30 mg SQ BID (WT < 150 kg, CrCl > 30 mL/min) AND/OR *Sequential Compression Device (SCD) 5 or more Highest Order ONE of the following medications: *Heparin 5000 units SQ TID (Preferred with Epidurals) *Enoxaparin/Lovenox 40 mg SQ daily (WT < 150 kg, CrCl > 30 mL/min) *Enoxaparin/Lovenox 30 mg SQ daily (WT < 150 kg, CrCl > 10-29 mL/min) *Enoxaparin/Lovenox 30 mg SQ BID (WT < 150 kg, CrCl > 30 mL/min) AND *Sequential Compression Device (SCD) Assessment and Plan - Plan Ms. Herrera is a 28-year-old female with a history of iron deficiency anemia and menometrorrhagia who was seen in the emergency department and [place] for left- sided headache and dizziness and was found to have severe anemia with a hemoglobin of 6.0. The patient reports menorrhagia persistently present since January. She is transferred to [facility] for blood transfusion and gynecology consultation under the hospitalist service. Anemia; likely related to menometrorrhagia of undetermined etiology -Stat type and screen with subsequent transfusion of 2 units packed red blood cells -Repeat hemoglobin hematocrit following transfusion -follow results -Consult gynecology to evaluate patient complained of menorrhagia -Monitor I&O and vital signs Recurrent headaches -no neurological deficits upon examination -relieved as an outpatient with OTC Tylenol and Ibuprofen -suspect multifactorial tension/anemia-related/possible migraine component- will reassess following blood transfusion to see if these improve - may need outpatient workup and/or neurology referral History of iron deficiency anemia - Will start Iron 325 BID p.o. and check iron studies DVT prophylaxis -Early ambulation Discussed Condition With: Dr. Linares
[2018-05-07] MEDS: Sod Chloride 0.9% Inj 1,000 ML IV.CONT SCH ×5 (01:51→22:00)
[2018-05-07 06:23] LABS: Anion Gap 7 meq/L (5-15); Blood Urea Nitrogen 13 mg/dL (7-18); Calcium 7.8 mg/dL (8.5-10.1); Carbon Dioxide 25.2 meq/L (21.0-32.0); Chloride 107 meq/L (98-107); Glomerular Filtration Rate Greater Than 89 mL/min (>89); Glucose,Random 100 mg/dL (74-106); Sodium 139 meq/L (136-145)
[2018-05-07 06:25] LABS: Iron 12 mcg/dL (50-170); Total Iron Binding Capacity 395 mcg/dL (250-450)
[2018-05-07] MEDS: Ferrous Sulfate 325 MG Tablet PO SCH ×2 (08:00→16:26)
[2018-05-07 08:06] LABS: Baso # (Auto) 0.1 th/mm3 (0.0-0.2); Baso % (Auto) 1.8 % (0.0-2.0); Eos # (Auto) 0.1 th/mm3 (0.0-0.4); Eos % (Auto) 2.1 % (0.0-4.0); Lymph # (Auto) 1.8 th/mm3 (1.0-4.8); Mean Corpuscular Hemoglobin 16.2 pg (27.0-34.0); Mean Corpuscular Volume 55.3 fL (80.0-100.0); Mean Platelet Volume 8.5 fL (7.0-11.0); Mono # (Auto) 0.5 th/mm3 (0.0-0.9); Mono % (Auto) 7.1 % (0.0-8.0); Neut # (Auto) 4.3 th/mm3 (1.8-7.7); Platelet Count 575 th/mm3 (150-450); Red Blood Count 3.48 mil/mm3 (4.00-5.30); Red Cell Distribution Width 22.8 % (11.6-17.2); White Blood Count 6.9 th/mm3 (4.0-11.0)
[2018-05-07 08:12] LABS: Mean Corpuscular HGB Conc 29.2 % (32.0-36.0)
[2018-05-07 08:15] LABS: Hematocrit 19.3 % (35.0-46.0); Hemoglobin 5.6 gm/dL (11.6-15.3)
[2018-05-07] MEDS ORDERED: Sodium Chlor 0.9% Inj 250 ML IV.SIG SCH (09:00)
--- NOTE | 2018-05-07 09:20 | P.CONOB ---
History of Present Illness Primary Care Physician: UNKNOWN Chief Complaint: Headache dizziness History of Present Illness: 28-year-old female, LMP January 11, presents with 4 months of continuous menorrhagia and hemoglobin of 6.0. Patient states she has had history of anemia and has had to have a transfusion in the past, with the last transfusion being 2 years ago. She has been on metformin and OCPs in the past but has stopped and she cannot remember why. Over the last 2 weeks she has had increasing headaches and has felt more fatigued than usual. She does not see a PHYSICIAN OFFICE SPECIALIST or PCP and has not tried any medications. She is continuously bleeding and has had 4 heavy pads over the day for the last 4 months. She is also been seeing clots continuously. She states she is still currently bleeding. She has not yet had the transfusion and feels the same overnight. OB history: None, recent test negative PHYSICIAN OFFICE SPECIALIST history: Pelvic ultrasound in 2016 revealed no abnormalities, 15 mm endometrial lining Medical history: None per patient, however history of being placed on metformin and OCPs indicates possible diagnosis of PCO S Surgical history: Teratoma removal at 2 days old Social history: Negative for smoking, drinking, drugs. Currently sexually active. No risk for STI's per patient. Review of Systems All other systems reviewed negative except as stated in HPI PMFSH - History History Provided By: Patient - Medical History Medical History: Medical History (Last Reviewed 05/07/18 @ 09:24 by Nohemi Fischer MD, R2) Iron deficiency anemia Menometrorrhagia - Surgical History Surgical History: Surgical History (Last Reviewed 05/07/18 @ 09:24 by Nohemi Fischer MD, R2) Teratoma - Family History Family History: Family History (Last Reviewed 05/07/18 @ 09:24 by Nohemi Fischer MD, R2) Father Family history of diabetes mellitus Grandparent Stroke Hypertension Grandparent Stroke Hypertension - Social History I have reviewed the patient's Social History: Yes - Tobacco History Second Hand Smoke Exposure: No Tobacco Use In Past 30 Days: No Smoking Status: Never smoker - Alcohol History How Often Do You Have a Drink Containing Alcohol: Never - Substance Use History Substance History: No History of Abuse Medications and Allergies Active Medications: Active Medications Acetaminophen (Tylenol) 650 mg PO Q4H PRN PRN Reason: Temp > 100.4 Bisacodyl (Dulcolax Supp) 10 mg RECTAL DAILY PRN PRN Reason: SEVERE CONSITIPATION Diphenhydramine HCl (Benadryl) 25 mg PO Q4H PRN PRN Reason: SEE LABEL COMMENTS Ferrous Sulfate (Ferosul) 325 mg PO BIDAC MARVA Sodium Chloride (Ns Inj) 1,000 mls @ 100 mls/hr IV.CONT .Q10H MARVA Last Admin: 05/07/18 01:53 Dose: 100 mls/hr Sodium Chloride (Ns Inj) 250 mls @ 15 mls/hr IV.SIG ONCE MARVA Stop: 05/07/18 14:39 Last Admin: 05/07/18 01:52 Dose: Not Given Sodium Chloride (Ns Inj) 250 mls @ 15 mls/hr IV.SIG ONCE MARVA Stop: 05/08/18 01:39 Ondansetron HCl (Zofran Inj) 4 mg IV.PUSH Q6H PRN PRN Reason: NAUSEA OR VOMITING Sennosides (Senokot) 17.2 mg PO Q12H PRN PRN Reason: Moderate Constipation Allergies Allergy/AdvReac Type Severity Reaction Status Date / Time dexamethasone Allergy Intermediate Drowsiness Verified 05/06/18 18:00 adhesive Allergy Mild Rash Verified 05/06/18 18:00 hydromorphone Allergy Unknown Hives Verified 05/06/18 18:00 Home Medications Medication Instructions Recorded Confirmed Type No Known Home Medications 05/06/18 05/07/18 History Exam Vital signs: Vital Signs 05/07/18 01:09 05/07/18 04:00 05/07/18 08:00 Temperature 98.1 F 97.7 F 98.3 F Pulse Rate 90 83 83 Respiratory Rate 18 18 20 Blood Pressure 131/73 102/59 L 103/62 Pulse Oximetry 99 83 L 98 05/07/18 08:15 Temperature 98.2 F Pulse Rate 89 Respiratory Rate 20 Blood Pressure Pulse Oximetry 99 Intake & Output 05/06/18 05/07/18 05/07/18 18:59 06:59 18:59 Intake Total 0 / 0 Balance 0 / 0 Intake: Intake (Blood Product) Amt 0 / 0 Rbc As-3 Leukoreduced Unit 0 / 0 [id number] Other: # Voids 1 Narrative: General: Well-nourished, well-developed, in no acute distress Skin: Intact, no rash present HEENT: Neck supple, no nodules appreciated Cardio: Regular rate and rhythm, no murmurs Respiratory: Clear to auscultation bilaterally, no wheezing, rales, crackles. Abdominal: Normal bowel sounds, soft, nondistended, no tenderness Results - Labs CBC & Chem 7: 05/08/18 03:42 05/07/18 05:46 Labs: Laboratory Results - last 24 hr 05/07/18 05/07/18 05/07/18 05:46 05:46 07:39 WBC 6.9 RBC 3.48 L Hgb 5.6 L* Hct 19.3 L* MCV 55.3 L D MCH 16.2 L MCHC 29.2 L RDW 22.8 H Plt Count 575 H MPV 8.5 Neut % (Auto) 62.0 Lymph % (Auto) 27.0 [place] % (Auto) 7.1 Eos % (Auto) 2.1 Baso % (Auto) 1.8 Neut # (Auto) 4.3 Lymph # (Auto) 1.8 [place] # (Auto) 0.5 Eos # (Auto) 0.1 Baso # (Auto) 0.1 WBC Differential . Differential Comment Auto diff final Sodium 139 Potassium 4.0 Chloride 107 Carbon Dioxide 25.2 Anion Gap 7 BUN 13 Creatinine 0.90 Estimated GFR Greater than 89 Random Glucose 100 Calcium 7.8 L Iron 12 L TIBC 395 % Saturation 3.0 L Blood Type O Positive Blood Type Recheck Not needed Antibody Screen Negative MTS Gel Crossmatch See Detail Bld Prod Order Comment Assessment and Plan - Diagnosis (1) Menorrhagia Code(s): N92.0 - Excessive and frequent menstruation with regular cycle Status : Acute Plan: Acute on chronic menorrhagia with hemoglobin 5.6 on admission Differential includes PCOS versus uterine abnormality versus coagulopathy -Transfused 2 units PRBCs, Lasix in between, follow-up posttransfusion CBC -We will reevaluate following transfusion, possible initiation of Premarin, Provera versus high-dose OCP regimen f/u TVUS to assist in transition to outpatient management for menorrhagia
--- NOTE | 2018-05-07 12:25 | US ---
EXAM DATE: 05/07/2018 12:00 AM EDT AGE/SEX: 28 years / Female INDICATIONS: Menorrhagia CLINICAL DATA: This is the patient's initial encounter. Patient reports that signs and symptoms have been present for 3 months and indicates a pain score of 0/10. MEDICAL/SURGICAL HISTORY: . Iron deficiency anemia. Menometrorrhagia. . Teratoma excision. COMPARISON: [facility] [place] & [place]ELVIS W/O CONTRAST, 05/24/2017. . MEASUREMENTS: Uterus:__10.4 x 4.7 x 3.8 cm Endometrial Stripe:__11 mm Right Ovary:__ 4.3 x 3.5 x 1.7 cm Left Ovary:__ 3.0 x 3.0 x 2.8 cm FINDINGS: Uterus: The myometrium has homogeneous echotexture without mass. Endometrial Stripe: The endometrial stripe displays homogeneous echotexture. Right Ovary: Ovary contains no mass. Follicles are present. Left Ovary: Ovary contains no mass. Follicles are present. Fluid: No free fluid. Other: None. CONCLUSION: 1. Negative ultrasound pelvis. Electronically signed by: Fermin Real MD 05/07/2018 12:23 PM EDT
[2018-05-07] MEDS ORDERED: Naloxone Inj 0.4 MG/ML Vial IV.PUSH PRN (13:53)
[2018-05-07] MEDS ORDERED: Ibuprofen 400 MG Tablet PO PRN (14:23)
[2018-05-07 14:36] LABS: Hematocrit 25.7 % (35.0-46.0); Hemoglobin 7.5 gm/dL (11.6-15.3)
--- NOTE | 2018-05-07 15:42 | US ---
EXAM DATE: 05/07/2018 12:00 AM EDT AGE/SEX: 28 years / Female INDICATIONS: Menorrhagia. CLINICAL DATA: This is the patient's initial encounter. Patient reports that signs and symptoms have been present for 3 months and indicates a pain score of 0/10. MEDICAL/SURGICAL HISTORY: . Iron deficiency. Anemia. Menorrhagia. . Teratoma removal. COMPARISON: [facility] – [place], [place] PELVIC COMPLETE, 05/07/2018. . TECHNIQUE: Real-time ultrasound of the pelvis was performed using an endovaginal transducer. BHCG: N/A MEASUREMENTS: Uterus:__8.7 x 4.6 x 3.8 cm Endometrial Stripe:__10 mm Right Ovary:__ 3.9 x 3.2 x 2.3 cm Left Ovary:__ . Not visualized. FINDINGS: Uterus: The myometrium has homogeneous echotexture without mass. Tiny cystic lesion measuring about 4 mm in maximal diameter in the lower uterine segment. Right Ovary: Ovary contains no mass. Follicles are present. Left Ovary: Not visualized. Other: None. CONCLUSION: 1. Left ovary not visualized on this exam. No adnexal mass. Tiny cystic lesion in lower uterine segm ent measuring about 4 mm in maximal diameter. Exam otherwise unremarkable. Electronically signed by: Fermin Real MD 05/07/2018 3:41 PM EDT
--- NOTE | 2018-05-07 16:25 | P.DS ---
Date of admission: 05/07/18 00:55 Primary care physician: UNKNOWN Attending physician on discharge: Winston Mathew Anticipated date of discharge: 05/07/18 Brief History from admission: 28-year-old female, LMP January 11, presents with 4 months of continuous menorrhagia and hemoglobin of 6.0. Patient states she has had history of anemia and has had to have a transfusion in the past, with the last transfusion being 2 years ago. She has been on metformin and OCPs in the past but has stopped and she cannot remember why. Over the last 2 weeks she has had increasing headaches and has felt more fatigued than usual. She does not see a STATE AUDITOR or PCP and has not tried any medications. She is continuously bleeding and has had 4 heavy pads over the day for the last 4 months. She is also been seeing clots continuously. She states she is still currently bleeding. She has not yet had the transfusion and feels the same overnight. OB history: None, recent test negative STATE AUDITOR history: Pelvic ultrasound in 2016 revealed no abnormalities, 15 mm endometrial lining Medical history: None per patient, however history of being placed on metformin and OCPs indicates possible diagnosis of PCO S Surgical history: Teratoma removal at 2 days old Social history: Negative for smoking, drinking, drugs. Currently sexually active. No risk for STI's per patient. DS: Diagnosis - Discharge Diagnosis (1) Anemia Status: Acute (2) Menorrhagia Status: Acute DS: Medications - Discharge Medications Prescriptions: norgestimate-ethinyl estradiol [Sprintec (28)] 1 tab PO DAILY 5 Days #1 pack ondansetron [Zofran ODT] 4 mg PO Q6-8H PRN 5 Days #10 tab PRN Reason: Nausea promethazine 25 mg PO HS PRN 5 Days #5 tab PRN Reason: Nausea DS: Summary Hospital Course: Patient is a 28-year-old -[place] female who presented with fatigue due to menorrhagia. Patient received 2 units of packed red blood cells and was evaluated by STATE AUDITOR. Hemoglobin improved to 7.5 immediately post transfusion. Patient tolerated transfusion well. STATE AUDITOR recommends OBC taper and follow-up in their office. - Time Spent with Patient Total time spent providing and/or coordinating discharge services: Less than 30 minutes Exam Vital signs: Vital Signs 05/07/18 01:09 05/07/18 04:00 05/07/18 08:00 Temperature 98.1 F 97.7 F 98.1 F Pulse Rate 90 83 83 Respiratory Rate 18 18 20 Blood Pressure 131/73 102/59 L 103/62 Pulse Oximetry 99 83 L 98 05/07/18 08:15 05/07/18 10:40 05/07/18 10:55 Temperature 98.2 F 99 F 99 F Pulse Rate 89 85 85 Respiratory Rate 20 18 20 Blood Pressure 130/65 130/65 Pulse Oximetry 99 100 100 05/07/18 11:15 05/07/18 12:00 Temperature 99 F 98.1 F Pulse Rate 80 69 Respiratory Rate 20 20 Blood Pressure 130/65 102/57 L Pulse Oximetry 100 95 Intake & Output 05/06/18 05/07/18 05/07/18 18:59 06:59 18:59 Intake Total 425 / 425 Output Total 2 / 2 Balance 423 / 423 Intake: Other Rbc As-3 Leukoreduced Unit [id number] Intake (Blood Product) Amt 400 / 400 Rbc As-3 Leukoreduced Unit 0 / 0 [id number] Rbc As-3 Leukoreduced Unit 400 / 400 [id number] Output: Urine 2 / 2 Other: Other Intake Source Rbc As-3 Leukoreduced Unit Saline Solution [id number] # Voids 1 Narrative: GENERAL: This is a resident, morbidly obese female patient, in no apparent distress. SKIN: No rashes, ecchymoses or lesions. Cool and dry. HEAD: Atraumatic. Normocephalic. EYES: No scleral icterus. No injection or drainage. Pupils equal round and reactive to light and accommodation. Extraocular movements intact. No nystagmus noted. ENT: Nose without bleeding, purulent drainage. NECK: Trachea midline. No JVD or lymphadenopathy. CARDIOVASCULAR: Regular rate and rhythm without murmurs, gallops, or rubs. RESPIRATORY: Clear to auscultation. Breath sounds equal bilaterally. No wheezes , rales, or rhonchi. GASTROINTESTINAL: Abdomen soft, non-tender, nondistended. No guarding. MUSCULOSKELETAL: Extremities without clubbing, cyanosis, or edema. No calf tenderness. NEUROLOGICAL: Awake and alert and oriented 3. Cranial nerves II through XII grossly intact. Motor and sensory grossly within normal limits. Normal speech. . Results Procedures completed during hospitalization: none Labs on day of discharge: Labs from last 24 hours 05/07/18 05/07/18 05/07/18 14:57 13:40 07:39 WBC 6.9 RBC 3.48 L Hgb 7.5 L 5.6 L* Hct 25.7 L 19.3 L* MCV 55.3 L D MCH 16.2 L MCHC 29.2 L RDW 22.8 H Plt Count 575 H MPV 8.5 Neut % (Auto) 62.0 Lymph % (Auto) 27.0 [place] % (Auto) 7.1 Eos % (Auto) 2.1 Baso % (Auto) 1.8 Neut # (Auto) 4.3 Lymph # (Auto) 1.8 [place] # (Auto) 0.5 Eos # (Auto) 0.1 Baso # (Auto) 0.1 WBC Differential . Differential Comment Auto diff final Sodium Potassium Chloride Carbon Dioxide Anion Gap BUN Creatinine Estimated GFR Random Glucose Calcium Iron TIBC % Saturation Blood Type Blood Type Recheck Antibody Screen MTS Gel Crossmatch See Detail Bld Prod Order Comment 05/07/18 05/07/18 05:46 05:46 WBC RBC Hgb Hct MCV MCH MCHC RDW Plt Count MPV Neut % (Auto) Lymph % (Auto) [place] % (Auto) Eos % (Auto) Baso % (Auto) Neut # (Auto) Lymph # (Auto) [place] # (Auto) Eos # (Auto) Baso # (Auto) WBC Differential Differential Comment Sodium 139 Potassium 4.0 Chloride 107 Carbon Dioxide 25.2 Anion Gap 7 BUN 13 Creatinine 0.90 Estimated GFR Greater than 89 Random Glucose 100 Calcium 7.8 L Iron 12 L TIBC 395 % Saturation 3.0 L Blood Type O Positive Blood Type Recheck Not needed Antibody Screen Negative MTS Gel Crossmatch See Detail Bld Prod Order Comment - Impressions ITS Impressions Pelvis Ultrasound 05/07/18 00:00 CONCLUSION: 1. Negative ultrasound pelvis. Transvaginal US 05/07/18 00:00 CONCLUSION: 1. Left ovary not visualized on this exam. No adnexal mass. Tiny cystic lesion in lower uterine segment measuring about 4 mm in maximal diameter. Exam otherwise unremarkable. Discharge Plan - Discharge Disposition Patient Disposition: 01 Discharge Home - Discharge Condition Condition: Stable - Discharge Order Discharge Orders: Discharge Order (Routine); Ordered 05/07/18 Ordered By: Alpa Posadas - Discharge Details Discharge Comment: Follow up with Dr. Fuentes in clinic on May 09. Repeat blood work in 1 week. - Physicians Team Primary Care Provider: UNKNOWN, Attending Provider: Winston Mathew Other Providers: Janette Bar MD - Rxs /Orders / Referrals /Forms Prescriptions: New norgestimate-ethinyl estradiol [Sprintec (28)] 0.25-35 mg-mcg Tablet 1 tab PO DAILY 5 Days Qty: 1 RF: 0 ondansetron [Zofran ODT] 4 mg Tablet,Disintegrating 4 mg PO Q6-8H PRN (Reason: Nausea) 5 Days Qty: 10 RF: 0 promethazine 25 mg Tablet 25 mg PO HS PRN (Reason: Nausea) 5 Days Qty: 5 RF: 0 No Action No Known Home Medications Ambulatory Orders / Order Sets / DME: Complete Blood Count with Diff (Routine) Location: Determined by Patient Ordered By: Alpa Posadas Referrals: UNKNOWN, [Primary Care Provider] - See Instructions - Post Discharge Care Plan Care Plan Goals: Your Health Problems: Goals to Promote Your Health: * To prevent worsening of your condition * To maintain your health at the optimal level Directions to Meet Your Goals: * Take your medications as prescribed * Follow your dietary instruction * Follow activity as directed * Keep your appointments as scheduled * Take your immunizations and boosters as scheduled * If your symptoms worsen call your PCP * If no PCP go to Urgent Care or Emergency Room Smoking is dangerous to your health. Avoid second hand smoke. You may reach the 24-hour crisis hotline for domestic abuse at .
--- NOTE | 2018-05-07 19:02 | CT ---
EXAM DATE: 05/07/2018 6:22 PM EDT AGE/SEX: 28 years / Female INDICATIONS: Dizziness. CLINICAL DATA: This is the patient's initial encounter. Patient reports that signs and symptoms have been present for 1 week and indicates a pain score of 0/10. MEDICAL/SURGICAL HISTORY: None. None. RADIATION DOSE: 52.19 CTDI (mGy) COMPARISON: No prior exams available for comparison. TECHNIQUE: CT of the head without contrast. Using automated exposure control and adjustment of the mA and/or kV according to patient size, radiation dose was kept as low as reasonably achievable to ob tain optimal diagnostic quality images. DICOM format image data is available electronically for revi ew and comparison. FINDINGS: Cerebrum: The ventricles are normal for age. No evidence of midline shift, mass lesion, hemorrhage or acute infarction. No extraaxial fluid collections are seen. Posterior Fossa: The cerebellum and brainstem are intact. The 4th ventricle is midline. The cerebe llopontine angle is unremarkable. Extracranial: The visualized portion of the orbits is intact. Skull: The calvaria is intact. No evidence of skull fracture. CONCLUSION: 1. Negative noncontrast CT brain. . Electronically signed by: Huang Taylor MD 05/07/2018 7:01 PM EDT
[2018-05-08 05:20] LABS: Hematocrit 24.9 % (35.0-46.0); Hemoglobin 7.6 gm/dL (11.6-15.3)
[2018-05-08] MEDS: Ferrous Sulfate 325 MG Tablet PO SCH (09:16)
[2018-05-08 09:22] VITALS: BP 132/60; PULSE 88; TEMP 97.9; O2SAT 100
[2018-05-08 09:44] VITALS: RESP 18
--- NOTE | 2018-05-08 09:53 | P.PNOB ---
Progress Note: A/P (1) Menorrhagia Status: Acute Code(s): N92.0 - Excessive and frequent menstruation with regular cycle Current Visit: Yes - Plan Acute on chronic menorrhagia with hemoglobin 5.6 on admission Differential includes PCOS versus uterine abnormality versus coagulopathy -Status post 2 units PRBCs, hemoglobin 7.6, increased from 5.6 -Hb still stable this morning at 7.6 -Patient counseled on importance of initiating high-dose OCP regimen to stabilize vaginal bleeding -high-dose OCPs with phenergan/zofran prescribed - f/u with [facility] with appointment with myself or other resident this week Transvaginal ultrasound: Left ovary not visualized on exam, no adnexal mass, tiny cystic lesion lower uterine segment measuring 4 mm in diameter. Otherwise exam unremarkable; uterus 8 x 4 x 3 cm, 10 mm endometrial stripe - Time Spent With Patient Total time spent is greater than 50% in coordination of care (as documented) at patient's floor/unit and/or counseling patient: Greater than 35 minutes Subjective Interval history: Patient seen and examined bedside this morning. Patient has been eating and drinking without difficulty. Denies any further headaches. Headaches were relieved by ibuprofen. She has been up in bed and walking without difficulty. She did not get the control pills prescribed to her last night because she stayed in the hospital to continue to undergo workup for her headache. She was advised of the importance of getting her breast control pills and starting the regimen prescribed. No change in vaginal bleeding. No pelvic pain. No acute events overnight. Physical Exam Vital signs: Temp Pulse Resp BP Pulse Ox 97.9 F 88 18 132/60 100 05/08/18 08:00 05/08/18 08:00 05/08/18 09:15 05/08/18 08:00 05/08/18 08:00 Narrative: General: Well-nourished, well-developed, in no acute distress Skin: Intact, no rash present HEENT: Neck supple, no nodules appreciated Cardio: Regular rate and rhythm, no murmurs Respiratory: Clear to auscultation bilaterally, no wheezing, rales, crackles. Abdominal: Normal bowel sounds, soft, nondistended, no tenderness Results - Labs CBC & Chem 7: 05/08/18 03:42 05/07/18 05:46 Labs: Laboratory Results - last 24 hr 05/07/18 05/07/18 05/07/18 05:46 05:46 13:40 Hgb 7.5 L Hct 25.7 L Beta HCG, Quant Less than 1 Blood Type O Positive Blood Type Recheck Not needed Antibody Screen Negative MTS Gel Crossmatch See Detail Bld Prod Order Comment 05/07/18 05/08/18 14:57 03:42 Hgb 7.6 L Hct 24.9 L Beta HCG, Quant Blood Type Blood Type Recheck Antibody Screen MTS Gel Crossmatch See Detail Bld Prod Order Comment - Imaging Impressions Head CT 05/07/18 00:00 CONCLUSION: 1. Negative noncontrast CT brain. . Pelvis Ultrasound 05/07/18 00:00 CONCLUSION: 1. Negative ultrasound pelvis. Transvaginal US 05/07/18 00:00 CONCLUSION: 1. Left ovary not visualized on this exam. No adnexal mass. Tiny cystic lesion in lower uterine segment measuring about 4 mm in maximal diameter. Exam otherwise unremarkable.
[2018-05-08] MEDS: Sod Chloride 0.9% Inj 1,000 ML IV.CONT SCH (11:26)
== END 2018-05-08 10:39 | disposition home or self-care (01) ==
LOC: NEDDLT 05-07 00:45 → N05 05-07 00:55
PROVIDERS: ADMIT Hospitalist; ATTEND Hospitalist